=== PATIENT | male | born 1940 | race Caucasian/White ===

== ENCOUNTER 2017-10-23 07:39 | Emergency (ER) | payer MEDICARE ==
[2017-10-23] MEDS ORDERED: IPRATROPIUM-ALBUTEROL 3 ML NEB INHALATION STA ×2 (08:19→09:31)
[2017-10-23] MEDS ORDERED: methylPREDNISolone SOD SUCCI 125 MG/2 ML VIAL IV STA (08:19)
[2017-10-23 08:29] LABS: Basophils % (A) 1 %; Eosinophils % (A) 0 %; HCT 35.1 % (39.0-53.0); HGB 11.6 gm/dL (13.0-17.5); Lymphocytes # (A) 0.7 k/uL (1.0-4.8); Lymphocytes % (A) 13 %; MCHC 32.9 g/dL (31.0-37.0); MCV 91.1 fL (80.0-100.0); Mean Platelet Volume 9.1; Monocytes # (A) 0.6 k/uL (0-1.0); Monocytes % (A) 12 %; Neutrophils # (A) 3.8 k/uL (1.3-7.7); Neutrophils % (A) 71 %; Platelet Count 126 k/uL (150-450); RBC 3.86 m/uL (4.30-5.90); RDW 13.2 % (11.5-15.5); WBC 5.4 k/uL (3.8-10.6)
[2017-10-23 08:41] LABS: INR 1.1 (<1.2); Partial Thromboplastin Time 27.3 sec (22.0-30.0); Prothrombin Time 10.7 sec (9.0-12.0)
--- NOTE | 2017-10-23 08:44 | XR ---
EXAMINATION TYPE: XR chest 2V DATE OF EXAM: 10/23/2017 COMPARISON: 12/01/2010 HISTORY: Congestion and dyspnea for 5 days TECHNIQUE: Frontal and lateral views of the chest are obtained. FINDINGS: There is mild interstitial prominence although this is less pronounced on the exam of 2010 and therefore likely chronic related rather than interstitial pulmonary edema. No pulmonary vascular congestion. Mild cardiomegaly and post CABG changes of the chest are seen. No sizable pleural effusi on, focal consolidation or pneumothorax. Mild multilevel degenerative changes of the thoracic spine a re noted. Pulmonary hyperinflation and flattening of the diaphragms is also seen. On the lateral imag e there is peribronchial cuffing appreciated. IMPRESSION: 1. No focal consolidation to suggest pneumonia. 2. Peribronchial cuffing in the lateral image which can be seen in reactive airway disease or bronchi tis. 3. Findings suggesting underlying COPD.
--- NOTE | 2017-10-23 08:48 | ED ---
General Adult HPI - General Chief complaint: Shortness of Breath Stated complaint: CHELE,COLD SYMPTOMS, NO SLEEPING Time Seen by Provider: 10/23/17 08:11 Source: patient, RN notes reviewed Mode of arrival: ambulatory Limitations: no limitations - History of Present Illness Initial comments: The patient's 76-year-old male who presents emergency room today with a chief complaint of shortness of breath over the last 5 days. Does admit that he's had decreased sleep over the last 5 days due to the shortness of breath. He does admit to increased cough congestion with positive sputum production it's been green in color. He does admit that he has a history of COPD. Distal 2 breathing treatments at home. Does not use oxygen at home. Patient states he does have some pain in his ribs when he coughs. He denies any other complaints or symptoms. Patient denies any recent fever, chills, chest pain, back pain, abdominal pain, nausea or vomiting, numbness or tingling, dysuria or hematuria, constipation or diarrhea, headaches or visual changes, or any other complaints. - Related Data Home Medications Medication Instructions Recorded Confirmed Aspirin 81 mg PO DAILY 10/23/17 10/23/17 Atenolol [Tenormin] 50 mg PO DAILY 10/23/17 10/23/17 Doxazosin [Cardura] 4 mg PO DAILY 10/23/17 10/23/17 Furosemide [Lasix] 40 mg PO DAILY PRN 10/23/17 10/23/17 Ibuprofen [Motrin] 800 mg PO Q8H PRN 10/23/17 10/23/17 Simvastatin [Zocor] 40 mg PO HS 10/23/17 10/23/17 Spironolactone 50 mg PO DAILY 10/23/17 10/23/17 Previous Rx's Medication Instructions Recorded Albuterol Inhaler [Ventolin Hfa 1 - 2 puff INHALATION Q4-6H PRN #1 10/23/17 Inhaler] inhaler Albuterol Nebulized [Ventolin 2.5 mg INHALATION Q4H PRN 10 Days 10/23/17 Nebulized] nebu Azithromycin [Zithromax Z-pack] 0 mg PO DIRECTED #6 tab 10/23/17 predniSONE 50 mg PO DAILY #5 tab 10/23/17 Allergies Allergy/AdvReac Type Severity Reaction Status Date / Time diphenhydramine Allergy Unknown Verified 10/23/17 08:36 [From Benadryl] Review of Systems ROS Statement: Those systems with pertinent positive or pertinent negative responses have been documented in the HPI. ROS Other: All systems not noted in ROS Statement are negative. Past Medical History Past Medical History: COPD, Rheumatoid Arthritis (RA) History of Any Multi-Drug Resistant Organisms: None Reported Past Surgical History: Coronary Bypass/CABG Past Psychological History: No Psychological Hx Reported Smoking Status: Current every day smoker Past Alcohol Use History: Occasional Past Drug Use History: None Reported General Exam - General Exam Comments Initial Comments: General: The patient is awake and alert, in no distress, and does not appear acutely ill. Eye: Pupils are equal, round and reactive to light, extra-ocular movements are intact. No nystagmus. There is normal conjunctiva bilaterally. No signs of icterus. Ears, nose, mouth and throat: There are moist mucous membranes and no oral lesions. Neck: The neck is supple, there is no tenderness or JVD. Cardiovascular: There is a regular rate and rhythm. No murmur, rub or gallop is appreciated. Respiratory: Increased expiratory wheeze bilaterally. respirations are non- labored, breath sounds are equal. No stridor, rales, or rhonchi. Musculoskeletal: Normal ROM, no tenderness. Strength 5/5. Sensation intact. Pulses equal bilaterally 2+. Neurological: A&O x 3. CN II-XII intact, There are no obvious motor or sensory deficits. Coordination appears grossly intact. Speech is normal. Skin: Skin is warm and dry and no rashes or lesions are noted. Psychiatric: Cooperative, appropriate mood & affect, normal judgment. Limitations: no limitations Course Vital Signs 10/23/17 10/23/17 10/23/17 07:44 08:11 08:23 Temperature 98.7 F 98.9 F Pulse Rate 73 65 68 Respiratory 24 22 Rate Blood Pressure 132/62 162/93 O2 Sat by Pulse 94 L 97 Oximetry 10/23/17 10/23/17 10/23/17 08:29 09:02 09:35 Temperature Pulse Rate 66 75 62 Respiratory 18 Rate Blood Pressure 167/76 O2 Sat by Pulse 95 Oximetry 10/23/17 10/23/17 09:45 09:55 Temperature Pulse Rate 66 Respiratory Rate Blood Pressure O2 Sat by Pulse 94 L Oximetry Medical Decision Making - Medical Decision Making Patient reexamined at this time shows no signs of distress. He's been ambulated and a pulse ox stays at 95%. He feels much better after breathing treatments here in the emergency room. His lung sounds have improved are clear at this time. Options were discussed with patient about admission. He states he would like to go home. He states he has special needs child only helps take care of. Patient chest x-ray showed no evidence of pneumonia. No CHF. His BNP is greater than 2400 he is on Lasix. There is no increased swelling to his legs. At this time patient will be treated with azithromycin and steroids go home with along with breathing treatments. Patient is advised to return if symptoms increase or worsen. He states understanding and is agreeable. - Lab Data Result diagrams: 10/23/17 08:01 10/23/17 08:01 Lab Results 10/23/17 10/23/17 10/23/17 Range/Units 08:01 08:01 08:01 WBC 5.4 (3.8-10.6) k/uL RBC 3.86 L (4.30-5.90) m/uL Hgb 11.6 L (13.0-17.5) gm/dL Hct 35.1 L (39.0-53.0) % MCV 91.1 (80.0-100.0) fL MCH 30.0 (25.0-35.0) pg MCHC 32.9 (31.0-37.0) g/dL RDW 13.2 (11.5-15.5) % Plt Count 126 L (150-450) k/uL Neutrophils % 71 % Lymphocytes % 13 % Monocytes % 12 % Eosinophils % 0 % Basophils % 1 % Neutrophils # 3.8 (1.3-7.7) k/uL Lymphocytes # 0.7 L (1.0-4.8) k/uL Monocytes # 0.6 (0-1.0) k/uL Eosinophils # 0.0 (0-0.7) k/uL Basophils # 0.0 (0-0.2) k/uL PT (9.0-12.0) sec INR (<1.2) APTT (22.0-30.0) sec Sodium 141 (137-145) mmol/L Potassium 4.4 (3.5-5.1) mmol/L Chloride 102 (98-107) mmol/L Carbon Dioxide 27 (22-30) mmol/L Anion Gap 12 mmol/L BUN 23 H (9-20) mg/dL Creatinine 1.07 (0.66-1.25) mg/dL Est GFR (MDRD) Af Amer >60 (>60 ml/min/1.73 sqM) Est GFR (MDRD) Non-Af >60 (>60 ml/min/1.73 sqM) Glucose 110 H (74-99) mg/dL Calcium 9.1 (8.4-10.2) mg/dL Total Bilirubin 1.0 (0.2-1.3) mg/dL AST 30 (17-59) U/L ALT 34 (21-72) U/L Alkaline Phosphatase 79 (38-126) U/L Total Creatine Kinase 289 H (55-170) U/L CK-MB (CK-2) 1.2 (0.0-2.4) ng/mL CK-MB (CK-2) Rel Index 0.4 Troponin I 0.014 (0.000-0.034) ng/mL NT-Pro-B Natriuret Pep pg/mL Total Protein 7.0 (6.3-8.2) g/dL Albumin 4.0 (3.5-5.0) g/dL 10/23/17 10/23/17 Range/Units 08:01 08:01 WBC (3.8-10.6) k/uL RBC (4.30-5.90) m/uL Hgb (13.0-17.5) gm/dL Hct (39.0-53.0) % MCV (80.0-100.0) fL MCH (25.0-35.0) pg MCHC (31.0-37.0) g/dL RDW (11.5-15.5) % Plt Count (150-450) k/uL Neutrophils % % Lymphocytes % % Monocytes % % Eosinophils % % Basophils % % Neutrophils # (1.3-7.7) k/uL Lymphocytes # (1.0-4.8) k/uL Monocytes # (0-1.0) k/uL Eosinophils # (0-0.7) k/uL Basophils # (0-0.2) k/uL PT 10.7 (9.0-12.0) sec INR 1.1 (<1.2) APTT 27.3 (22.0-30.0) sec Sodium (137-145) mmol/L Potassium (3.5-5.1) mmol/L Chloride (98-107) mmol/L Carbon Dioxide (22-30) mmol/L Anion Gap mmol/L BUN (9-20) mg/dL Creatinine (0.66-1.25) mg/dL Est GFR (MDRD) Af Amer (>60 ml/min/1.73 sqM) Est GFR (MDRD) Non-Af (>60 ml/min/1.73 sqM) Glucose (74-99) mg/dL Calcium (8.4-10.2) mg/dL Total Bilirubin (0.2-1.3) mg/dL AST (17-59) U/L ALT (21-72) U/L Alkaline Phosphatase (38-126) U/L Total Creatine Kinase (55-170) U/L CK-MB (CK-2) (0.0-2.4) ng/mL CK-MB (CK-2) Rel Index Troponin I (0.000-0.034) ng/mL NT-Pro-B Natriuret Pep 2490 pg/mL Total Protein (6.3-8.2) g/dL Albumin (3.5-5.0) g/dL Disposition Clinical Impression: COPD exacerbation Disposition: HOME SELF-CARE Condition: Good Instructions: COPD (Chronic Obstructive Pulmonary Disease) (ED) Additional Instructions: Please use medication as discussed. Please follow-up with family doctor in the next 2 days of symptoms have not improved. Please return to emergency room if the symptoms increase or worsen or for any other concerns. Prescriptions: Albuterol Inhaler [Ventolin Hfa Inhaler] 1 - 2 puff INHALATION Q4-6H PRN #1 inhaler PRN Reason: Cough Albuterol Nebulized [Ventolin Nebulized] 2.5 mg INHALATION Q4H PRN 10 Days nebu PRN Reason: Cough Azithromycin [Zithromax Z-pack] 0 mg PO DIRECTED #6 tab predniSONE 50 mg PO DAILY #5 tab Referrals: Kvng Adrian DO [Primary Care Provider] - 1-2 days Time of Disposition: 10:16
[2017-10-23 08:50] LABS: ALT 34 U/L (21-72); AST 30 U/L (17-59); Alkaline Phosphatase 79 U/L (38-126); Anion Gap 12 mmol/L; Blood Urea Nitrogen 23 mg/dL (9-20); Calcium 9.1 mg/dL (8.4-10.2); Carbon Dioxide 27 mmol/L (22-30); Chloride 102 mmol/L (98-107); Glucose 110 mg/dL (74-99); Potassium 4.4 mmol/L (3.5-5.1); Sodium 141 mmol/L (137-145)
[2017-10-23 09:03] LABS: Creatine Kinase MB 1.2 ng/mL (0.0-2.4); Troponin I 0.014 ng/mL (0.000-0.034)
[2017-10-23] MEDS ORDERED: cefTRIAXone IN SWFI 1,000 MG/10 ML SYRINGE IVP STA (09:48)
[2017-10-23 10:36] VITALS: BP 171/69; PULSE 67; RESP 20; TEMP 97.9
== END 2017-10-23 10:36 | disposition home or self-care (01) ==
LOC: EC 07:39
DX: J44.1 Chronic obstructive pulmonary disease with (acute) exacerbation (principal); M06.9 Rheumatoid arthritis, unspecified; F17.200 Nicotine dependence, unspecified, uncomplicated; Z79.82 Long term (current) use of aspirin; Z79.899 Other long term (current) drug therapy; Z88.8 Allergy status to other drugs, medicaments and biological substances
CPT/HCPCS: 36415; 94640 ×2; 93005; 83880; 80053; 82550; 82553; 84484; 85025; 85610; 85730; 71046; 99285; 96374; 96375; J2930; J0696

== ENCOUNTER → 2017-11-05 | Outpatient (CLI) | payer MEDICARE ==
--- NOTE | 2017-11-05 17:17 | XR ---
EXAMINATION TYPE: XR abdomen 2V DATE OF EXAM: 11/05/2017 COMPARISON: NONE HISTORY: Right lower quadrant pain TECHNIQUE: 3 views FINDINGS: I see no sign of intestinal obstruction or pneumoperitoneum. Fecal pattern is normal. There is no evidence of a mass. There are no pathologic calcifications over the kidneys. IMPRESSION: Nonacute abdomen.
== END | disposition home or self-care (01) ==
LOC: RADXRYALE 16:49
PROVIDERS: ATTEND Physician Assistant Medical
DX: K59.00 Constipation, unspecified (principal); R10.813 Right lower quadrant abdominal tenderness
CPT/HCPCS: 74019

== ENCOUNTER → 2017-11-10 | Outpatient (CLI) | payer MEDICARE ==
[2017-11-10 19:30] LABS: Blood Urea Nitrogen 22 mg/dL (9-20)
--- NOTE | 2017-11-10 21:59 | CT ---
EXAMINATION TYPE: CT abdomen pelvis w con DATE OF EXAM: 11/10/2017 COMPARISON: Prior CT abdomen 03/26/2012 HISTORY: Right lower quadrant pain x [address] DLP: 782.3 mGycm Automated exposure control for dose reduction was used. TECHNIQUE: Helical acquisition of images from the lung bases through the pelvis have been completed. CONTRAST: Performed with Oral Contrast and with IV Contrast, patient injected with 100 mL of Omnipaque 300. FINDINGS: The heart is enlarged. There are coronary artery calcifications present. LUNG BASES: No significant abnormality is appreciated. AORTA: No significant abnormality is appreciated. LIVER/GB: Liver shows a somewhat nodular contour. Dependent high density within the gallbladder fransisco tible with stones. PANCREAS: No significant abnormality is seen. SPLEEN: No significant abnormality is seen. ADRENALS: No significant abnormality is seen. KIDNEYS: Cortical cyst present at the upper pole the right kidney similar to prior exam. Cannot exclu de a distal right ureteral calculus, 5 mm distal right ureteral calculus is suspected. REPRODUCTIVE ORGANS: Prostate is enlarged. BOWEL: Colonic wall thickening is present especially in the rectosigmoid colon, difficult to exclude mucosal or annular lesion. There is extensive diverticular change in the descending sigmoid colon, n o evident bowel obstruction. The appendix is normal. FREE AIR: No Free Air visible. ASCITES: None visible. PELVIC ADENOPATHY: None visualized. RETROPERITONEAL ADENOPATHY: No Retroperitoneal Adenopathy visible. URINARY BLADDER: There is some thickening of the urinary bladder wall likely due to chronic outlet o bstruction, focal deformity of the anterior aspect on the left may be related to patient's hernia.. OSSEOUS STRUCTURES: No significant abnormality is seen. There is a left inguinal hernia present which contains fat. IMPRESSION: FINDINGS LIKELY REPRESENT DISTAL RIGHT URETERAL CALCULUS. DIVERTICULOSIS. CONSIDER BOWEL SURVEILLANCE IF THIS HAS NOT BEEN PERFORMED DESCRIBED. LEFT INGUINAL HERNIA. Cholelithiasis.
== END | disposition home or self-care (01) ==
LOC: RADCTMAIN 18:33
PROVIDERS: ATTEND Physician Assistant Medical
DX: K80.20 Calculus of gallbladder without cholecystitis without obstruction (principal); K40.90 Unilateral inguinal hernia, without obstruction or gangrene, not specified as recurrent; K57.30 Diverticulosis of large intestine without perforation or abscess without bleeding
CPT/HCPCS: 82565; 84520; 74177; 36415; Q9967

== ENCOUNTER → 2018-01-25 | Outpatient (CLI) | payer MEDICARE ==
--- NOTE | 2018-01-25 15:17 | XR ---
EXAMINATION TYPE: XR cervical spine limited DATE OF EXAM: 01/25/2018 TECHNIQUE: Frontal and lateral view of the cervical spine are obtained. HISTORY: M542 cervicalgia right neck pain for 3 weeks. COMPARISON: None FINDINGS: The cervical spine is visualized in its entirety from C1 thru the top of T1 level, it is s traightened in alignment without evidence of acute fracture or dislocation. The pre-vertebral soft t issue appears within normal limits. The C1-C2 articulation is within normal limits on the frontal vi ew. Vertebral body heights are maintained. There is mild to moderate multilevel disc space narrowing and spurring most prominent at C5-C6 level. There is partial visualization of sternal wires and media stinal clips. There is mild to moderate calcified plaque bilateral carotid bulbs, left greater than r ight. Consider carotid ultrasound evaluation to further assess. IMPRESSION: As above.
== END | disposition home or self-care (01) ==
LOC: RADXRYALE 14:44
PROVIDERS: ATTEND Family Medicine
DX: M48.02 Spinal stenosis, cervical region (principal); Z98.890 Other specified postprocedural states
CPT/HCPCS: 72040

== ENCOUNTER → 2018-04-02 | Outpatient (CLI) | payer MEDICARE ==
[2018-04-02 08:44] LABS: Calcium 9.6 mg/dL (8.4-10.2); Potassium 5.4 mmol/L (3.5-5.1)
== END | disposition home or self-care (01) ==
LOC: LABWHC1 08:05
PROVIDERS: ATTEND Internal Medicine Cardiovascular Disease
DX: E78.5 Hyperlipidemia, unspecified (principal); I25.10 Atherosclerotic heart disease of native coronary artery without angina pectoris; R60.9 Edema, unspecified
CPT/HCPCS: 36415; 80048; 80061; 83880; 84450; 84460

== ENCOUNTER → 2018-06-18 | Outpatient (CLI) | payer MEDICARE ==
[2018-06-18 09:02] LABS: Basophils # (A) 0.1 k/uL (0-0.2); Basophils % (A) 1 %; Eosinophils # (A) 0.8 k/uL (0-0.7); Eosinophils % (A) 11 %; HCT 45.7 % (39.0-53.0); Lymphocytes # (A) 1.5 k/uL (1.0-4.8); Lymphocytes % (A) 20 %; MCH 30.2 pg (25.0-35.0); MCHC 32.7 g/dL (31.0-37.0); MCV 92.1 fL (80.0-100.0); Mean Platelet Volume 8.3; Monocytes # (A) 0.5 k/uL (0-1.0); Monocytes % (A) 7 %; Neutrophils # (A) 4.4 k/uL (1.3-7.7); Neutrophils % (A) 59 %; Platelet Count 171 k/uL (150-450); RBC 4.96 m/uL (4.30-5.90); RDW 14.4 % (11.5-15.5); WBC 7.4 k/uL (3.8-10.6)
[2018-06-18 09:21] LABS: Calcium 9.6 mg/dL (8.4-10.2); Potassium 4.8 mmol/L (3.5-5.1); Total Bilirubin 1.3 mg/dL (0.2-1.3); Total Protein 7.1 g/dL (6.3-8.2)
== END | disposition home or self-care (01) ==
LOC: LABWHC1 08:25
PROVIDERS: ATTEND Internal Medicine Cardiovascular Disease
DX: I25.10 Atherosclerotic heart disease of native coronary artery without angina pectoris (principal); E78.5 Hyperlipidemia, unspecified; M19.90 Unspecified osteoarthritis, unspecified site
CPT/HCPCS: 36415; 80053; 85025

== ENCOUNTER 2018-07-05 22:06 | Emergency (ER) | payer MEDICARE ==
[2018-07-05 22:16] VITALS: RESP 16
--- NOTE | 2018-07-05 22:44 | ED ---
Psych HPI - General Chief Complaint: Psychiatric Symptoms Stated Complaint: Suicidal Time Seen by Provider: 07/05/18 22:14 Source: patient, family, EMS Mode of arrival: EMS - History of Present Illness Initial Comments: Patient is 77-year-old man brought by EMS to have psychiatric evaluation. The patient does not give any useful history, stating that he is not know why he is in the emergency department. The patient states that he hasn't really been texting his daughter that he was tired of it all, and then he states that the next thing he knew an ambulance had arrived at his house for him. The patient is not more forthcoming about the situation. Does state that he was drinking "too many shots"tonight. Complaint: other -: unknown - Related Data Home Medications Medication Instructions Recorded Confirmed Aspirin 81 mg PO DAILY 10/23/17 07/05/18 Atenolol [Tenormin] 50 mg PO DAILY 10/23/17 07/05/18 Furosemide [Lasix] 40 mg PO DAILY PRN 10/23/17 07/05/18 Simvastatin [Zocor] 40 mg PO HS 10/23/17 07/05/18 Spironolactone 50 mg PO DAILY 10/23/17 07/05/18 Allergies Allergy/AdvReac Type Severity Reaction Status Date / Time diphenhydramine Allergy Unknown Verified 07/05/18 22:54 [From Benadryl] Review of Systems ROS Statement: Those systems with pertinent positive or pertinent negative responses have been documented in the HPI. ROS Other: All systems not noted in ROS Statement are negative. Constitutional: Denies: fever, chills, weakness Respiratory: Denies: cough, dyspnea Cardiovascular: Denies: chest pain, palpitations Gastrointestinal: Denies: abdominal pain, vomiting, diarrhea Musculoskeletal: Denies: back pain Neurological: Denies: headache Psychiatric: Reports: as per HPI Past Medical History Past Medical History: COPD, Rheumatoid Arthritis (RA) History of Any Multi-Drug Resistant Organisms: None Reported Past Surgical History: Coronary Bypass/CABG Past Psychological History: No Psychological Hx Reported Smoking Status: Current every day smoker Past Alcohol Use History: Daily Past Drug Use History: None Reported General Exam General appearance: alert, in no apparent distress, appears intoxicated Head exam: Present: atraumatic, normocephalic Eye exam: Present: normal appearance, EOMI, nystagmus. Absent: scleral icterus , conjunctival injection Respiratory exam: Present: normal lung sounds bilaterally. Absent: respiratory distress, wheezes, rales, rhonchi, stridor Cardiovascular Exam: Present: regular rate, normal rhythm, normal heart sounds. Absent: systolic murmur, diastolic murmur, rubs, gallop GI/Abdominal exam: Present: soft. Absent: distended, tenderness, guarding, rebound Extremities exam: Present: normal inspection, normal capillary refill. Absent: pedal edema, calf tenderness Back exam: Present: normal inspection. Absent: CVA tenderness (R), CVA tenderness (L) Skin exam: Present: warm, dry, intact, normal color. Absent: rash Course Vital Signs 07/05/18 22:12 Temperature 97.0 F L Pulse Rate 71 Respiratory 16 Rate Blood Pressure 139/72 O2 Sat by Pulse 98 Oximetry Medical Decision Making - Lab Data Lab Results 07/05/18 07/06/18 Range/Units 22:30 00:24 Urine Opiates Screen Not Detected (NotDetected) Ur Oxycodone Screen Not Detected (NotDetected) Urine Methadone Screen Not Detected (NotDetected) Ur Propoxyphene Screen Not Detected (NotDetected) Ur Barbiturates Screen Not Detected (NotDetected) U Tricyclic Antidepress Not Detected (NotDetected) Ur Phencyclidine Scrn Not Detected (NotDetected) Ur Amphetamines Screen Not Detected (NotDetected) U Methamphetamines Scrn Not Detected (NotDetected) U Benzodiazepines Scrn Not Detected (NotDetected) Urine Cocaine Screen Not Detected (NotDetected) U Marijuana (THC) Screen Detected H (NotDetected) Serum Alcohol 82 mg/dL Disposition Clinical Impression: Alcohol intoxication Disposition: HOME SELF-CARE Condition: Good Instructions: Alcohol Intoxication (ED) Is patient prescribed a controlled substance at d/c from ED?: No Referrals: Kvng Adrian DO [Primary Care Provider] - 1-2 days
[2018-07-05 23:13] LABS: Amphetamine Screen,Urine Not Detected (NotDetected); Barbiturate Screen,Urine Not Detected (NotDetected); Benzodiazepines Screen,Urine Not Detected (NotDetected); Cocaine Screen,Urine Not Detected (NotDetected); Methadone Screen, Urine Not Detected (NotDetected); Opiate Screen,Urine Not Detected (NotDetected); Oxycodone Screen, Urine Not Detected (NotDetected); Phencyclidine Screen,Urine Not Detected (NotDetected); Tricyclic Antidepressant,Urine Not Detected (NotDetected); Urn Cannabinoid Scrn Detected (NotDetected)
[2018-07-06 03:08] VITALS: BP 130/74; PULSE 68; TEMP 97.7
== END 2018-07-06 03:08 | disposition home or self-care (01) ==
LOC: EC 22:06
DX: F10.120 Alcohol abuse with intoxication, uncomplicated (principal); F17.200 Nicotine dependence, unspecified, uncomplicated; Z95.1 Presence of aortocoronary bypass graft; Z79.82 Long term (current) use of aspirin; Z79.899 Other long term (current) drug therapy; Z88.8 Allergy status to other drugs, medicaments and biological substances; Y90.4 Blood alcohol level of 80-99 mg/100 ml
CPT/HCPCS: 36415; 80306; 99285; G0480; 80320

== ENCOUNTER 2018-11-19 17:28 | Emergency (ER) | payer MEDICARE ==
[2018-11-19] MEDS ORDERED: SODIUM CHLORIDE 0.9% 1,000 ML IV STA (17:36)
[2018-11-19] MEDS ORDERED: SODIUM CHLORIDE 0.9% 500 ML 500 ML IV STA (17:36)
--- NOTE | 2018-11-19 17:43 | ED ---
General Adult HPI - General Chief complaint: Chest Pain Stated complaint: Syncope Time Seen by Provider: 11/19/18 17:30 Source: patient, EMS, RN notes reviewed Mode of arrival: EMS - History of Present Illness Initial comments: Is a 77-year-old male who was just recently put on Eliquis who states he was sitting at a computer daily became very lightheaded and dizzy no palpitations he denies any chest pain [place] questioning any almost passed out he did apparently fall but was caught by family members. Right now he feels normal he denies any fevers chills nausea vomiting sweats palpitations patient is noted have atrial fibrillation. He does admit to drinking a glass of wine today and 3 glasses last night. He has been eating and drinking okay however. Denies any headache loss of function to his upper or lower extremities or any other complaints - Related Data Home Medications Medication Instructions Recorded Confirmed Aspirin 81 mg PO DAILY 10/23/17 11/19/18 Atenolol [Tenormin] 50 mg PO DAILY 10/23/17 11/19/18 Simvastatin [Zocor] 40 mg PO HS 10/23/17 11/19/18 Spironolactone 50 mg PO DAILY 10/23/17 11/19/18 Doxazosin [Cardura] 4 mg PO DAILY 11/19/18 11/19/18 Eliquis (Mg Unknown) 1 tab PO DAILY 11/19/18 11/19/18 Turmeric Root Extract [Turmeric] 500 mg PO DAILY 11/19/18 11/19/18 Allergies Allergy/AdvReac Type Severity Reaction Status Date / Time diphenhydramine Allergy Unknown Verified 11/19/18 18:03 [From Benadryl] Review of Systems ROS Statement: Those systems with pertinent positive or pertinent negative responses have been documented in the HPI. ROS Other: All systems not noted in ROS Statement are negative. Past Medical History Past Medical History: COPD, Rheumatoid Arthritis (RA) History of Any Multi-Drug Resistant Organisms: None Reported Past Surgical History: Coronary Bypass/CABG Past Psychological History: No Psychological Hx Reported Smoking Status: Current every day smoker Past Alcohol Use History: Daily Past Drug Use History: None Reported General Exam - General Exam Comments Initial Comments: This is a well-developed well-nourished awake alert oriented times 3 male General appearance: alert, in no apparent distress Head exam: Present: atraumatic, normocephalic, normal inspection Eye exam: Present: normal appearance, PERRL, EOMI. Absent: scleral icterus, conjunctival injection, periorbital swelling ENT exam: Present: mucous membranes dry Neck exam: Present: normal inspection. Absent: tenderness, meningismus, lymphadenopathy Respiratory exam: Present: normal lung sounds bilaterally. Absent: respiratory distress, wheezes, rales, rhonchi, stridor Cardiovascular Exam: Present: irregular rhythm. Absent: systolic murmur, diastolic murmur, rubs, gallop, clicks GI/Abdominal exam: Present: soft, normal bowel sounds. Absent: distended, tenderness, guarding, rebound, rigid Extremities exam: Present: normal inspection, full ROM, normal capillary refill. Absent: tenderness, pedal edema, joint swelling, calf tenderness Back exam: Present: normal inspection Neurological exam: Present: alert, oriented X3, CN II-XII intact Psychiatric exam: Present: normal affect, normal mood Skin exam: Present: warm, dry, intact, normal color. Absent: rash Course Vital Signs 11/19/18 11/19/18 11/19/18 17:39 19:07 20:23 Temperature 98 F Pulse Rate 68 66 69 Respiratory 14 16 16 Rate Blood Pressure 137/68 129/71 128/70 O2 Sat by Pulse 98 97 99 Oximetry - Reevaluation(s) Reevaluation #1: 11/19/18 17:43 Rhythm strip review atrial fibrillation rate of 62 indication was near syncopal episode and history of A. fib. EKG Findings - EKG Results: EKG: interpreted by PATRICK (Atrial fibrillation with a rate of 62 QRS 80 QT since QTC 436/442 some artifact is present no acute ST-T wave acute changes seen) Medical Decision Making - Medical Decision Making I did have one discussed with patient family member the patient feels much improved at this time he does describe almost passed out when bending over while working at his computer. The workup is consistent with a vasovagal episode likely secondary to dehydration. He also did demonstrate hypomagnesemia. He was given IV supplements in the emergency department and discharged. He will be instructed to take [id number] magnesium follow-up with his doctor also increase his oral fluids. - Lab Data Result diagrams: 11/19/18 17:48 03/01/19 17:48 Lab Results 11/19/18 11/19/18 11/19/18 Range/Units 17:48 17:48 17:48 WBC 8.7 (3.8-10.6) k/uL RBC 4.45 (4.30-5.90) m/uL Hgb 13.9 (13.0-17.5) gm/dL Hct 41.4 (39.0-53.0) % MCV 93.1 (80.0-100.0) fL MCH 31.1 (25.0-35.0) pg MCHC 33.5 (31.0-37.0) g/dL RDW 13.7 (11.5-15.5) % Plt Count 162 (150-450) k/uL Neutrophils % 74 % Lymphocytes % 12 % Monocytes % 6 % Eosinophils % 7 % Basophils % 1 % Neutrophils # 6.4 (1.3-7.7) k/uL Lymphocytes # 1.0 (1.0-4.8) k/uL Monocytes # 0.5 (0-1.0) k/uL Eosinophils # 0.6 (0-0.7) k/uL Basophils # 0.1 (0-0.2) k/uL PT 10.6 (9.0-12.0) sec INR 1.0 (<1.2) APTT 24.0 (22.0-30.0) sec Sodium 137 (137-145) mmol/L Potassium 4.7 (3.5-5.1) mmol/L Chloride 104 (98-107) mmol/L Carbon Dioxide 26 (22-30) mmol/L Anion Gap 7 mmol/L BUN 21 H (9-20) mg/dL Creatinine 1.09 (0.66-1.25) mg/dL Est GFR (CKD-EPI)AfAm 75 (>60 ml/min/1.73 sqM) Est GFR (CKD-EPI)NonAf 65 (>60 ml/min/1.73 sqM) Glucose 125 H (74-99) mg/dL Calcium 9.6 (8.4-10.2) mg/dL Magnesium 1.7 (1.6-2.3) mg/dL Total Bilirubin 1.0 (0.2-1.3) mg/dL AST 18 (17-59) U/L ALT 28 (21-72) U/L Alkaline Phosphatase 75 (38-126) U/L Troponin I (0.000-0.034) ng/mL Total Protein 6.9 (6.3-8.2) g/dL Albumin 4.0 (3.5-5.0) g/dL Urine Color Urine Appearance (Clear) Urine pH (5.0-8.0) Ur Specific [place] (1.001-1.035) Urine Protein (Negative) Urine Glucose (UA) (Negative) Urine Ketones (Negative) Urine Blood (Negative) Urine Nitrite (Negative) Urine Bilirubin (Negative) Urine Urobilinogen (<2.0) mg/dL Ur Leukocyte Esterase (Negative) 11/19/18 11/19/18 Range/Units 17:48 17:48 WBC (3.8-10.6) k/uL RBC (4.30-5.90) m/uL Hgb (13.0-17.5) gm/dL Hct (39.0-53.0) % MCV (80.0-100.0) fL MCH (25.0-35.0) pg MCHC (31.0-37.0) g/dL RDW (11.5-15.5) % Plt Count (150-450) k/uL Neutrophils % % Lymphocytes % % Monocytes % % Eosinophils % % Basophils % % Neutrophils # (1.3-7.7) k/uL Lymphocytes # (1.0-4.8) k/uL Monocytes # (0-1.0) k/uL Eosinophils # (0-0.7) k/uL Basophils # (0-0.2) k/uL PT (9.0-12.0) sec INR (<1.2) APTT (22.0-30.0) sec Sodium (137-145) mmol/L Potassium (3.5-5.1) mmol/L Chloride (98-107) mmol/L Carbon Dioxide (22-30) mmol/L Anion Gap mmol/L BUN (9-20) mg/dL Creatinine (0.66-1.25) mg/dL Est GFR (CKD-EPI)AfAm (>60 ml/min/1.73 sqM) Est GFR (CKD-EPI)NonAf (>60 ml/min/1.73 sqM) Glucose (74-99) mg/dL Calcium (8.4-10.2) mg/dL Magnesium (1.6-2.3) mg/dL Total Bilirubin (0.2-1.3) mg/dL AST (17-59) U/L ALT (21-72) U/L Alkaline Phosphatase (38-126) U/L Troponin I <0.012 (0.000-0.034) ng/mL Total Protein (6.3-8.2) g/dL Albumin (3.5-5.0) g/dL Urine Color Yellow Urine Appearance Clear (Clear) Urine pH 5.5 (5.0-8.0) Ur Specific [place] 1.016 (1.001-1.035) Urine Protein Negative (Negative) Urine Glucose (UA) Negative (Negative) Urine Ketones Negative (Negative) Urine Blood Negative (Negative) Urine Nitrite Negative (Negative) Urine Bilirubin Negative (Negative) Urine Urobilinogen <2.0 (<2.0) mg/dL Ur Leukocyte Esterase Negative (Negative) - Radiology Data Radiology results: report reviewed, image reviewed Disposition Clinical Impression: Vasovagal episode, Hypomagnesemia, Dehydration Disposition: HOME SELF-CARE Condition: Good Instructions (If sedation given, give patient instructions): Hypomagnesemia (ED ), Dehydration (ED), Near Syncope (ED) Is patient prescribed a controlled substance at d/c from ED?: No Referrals: Kvng Adrian DO [Primary Care Provider] - 1-2 days
[2018-11-19 17:45] VITALS: TEMP 98
[2018-11-19 18:17] LABS: Appearance,Urine Clear (Clear); Basophils # (A) 0.1 k/uL (0-0.2); Basophils % (A) 1 %; Bilirubin,Urine Negative (Negative); Blood,Urine Negative (Negative); Color,Urine Yellow; Eosinophils # (A) 0.6 k/uL (0-0.7); Eosinophils % (A) 7 %; Glucose,Urine (UA) Negative (Negative); HCT 41.4 % (39.0-53.0); HGB 13.9 gm/dL (13.0-17.5); Ketones,Urine Negative (Negative); Leukocyte Esterase,Urine Negative (Negative); Lymphocytes % (A) 12 %; MCH 31.1 pg (25.0-35.0); MCHC 33.5 g/dL (31.0-37.0); MCV 93.1 fL (80.0-100.0); Mean Platelet Volume 8.8; Monocytes # (A) 0.5 k/uL (0-1.0); Monocytes % (A) 6 %; Neutrophils # (A) 6.4 k/uL (1.3-7.7); Neutrophils % (A) 74 %; Nitrite,Urine Negative (Negative); PH, Urine 5.5 (5.0-8.0); Platelet Count 162 k/uL (150-450); Protein,Urine Negative (Negative); RBC 4.45 m/uL (4.30-5.90); RDW 13.7 % (11.5-15.5); Specific Gravity,Urine 1.016 (1.001-1.035); Urobilinogen,Urine <2.0 mg/dL (<2.0); WBC 8.7 k/uL (3.8-10.6)
[2018-11-19 18:28] LABS: Prothrombin Time 10.6 sec (9.0-12.0)
[2018-11-19 18:29] LABS: Calcium 9.6 mg/dL (8.4-10.2); Magnesium 1.7 mg/dL (1.6-2.3); Potassium 4.7 mmol/L (3.5-5.1); Total Protein 6.9 g/dL (6.3-8.2)
--- NOTE | 2018-11-19 18:44 | CT ---
EXAMINATION TYPE: CT brain wo con DATE OF EXAM: 11/19/2018 COMPARISON: 02/26/2013 HISTORY: Syncopal episode today. CT DLP: 1046.4 mGycm Automated exposure control for dose reduction was used. FINDINGS: There is cerebral cortical atrophy. There is no mass effect nor midline shift. There is no sign of in tracranial hemorrhage. Calvarium is intact. IMPRESSION: MILD ATROPHY. NO ACUTE INTRACRANIAL ABNORMALITY. NO CHANGE COMPARED TO OLD EXAM.
--- NOTE | 2018-11-19 18:46 | XR ---
EXAMINATION TYPE: XR chest 2V DATE OF EXAM: 11/19/2018 COMPARISON: October 23, 2017 HISTORY: Syncope TECHNIQUE: Frontal and lateral views of the chest are obtained. FINDINGS: There is no heart failure nor confluent pneumonic infiltrate. There are sternal wires. Tho racic aorta is atheromatous. There is no pleural effusion. There are chest leads. There is minor spur ring in the thoracic spine. IMPRESSION: No active cardiopulmonary disease. There is clearing of minimal pulmonary interstitial e adelso compared to old exam.
[2018-11-19 19:08] VITALS: RESP 16
[2018-11-19] MEDS ORDERED: MAGNESIUM SULFATE-D5W PMX 1 GM in DEXTROSE/WATER 1 100ML.BAG IVPB ONE (19:11)
[2018-11-19 20:25] VITALS: BP 128/70; PULSE 69
== END 2018-11-19 20:23 | disposition home or self-care (01) ==
LOC: EC 17:28
DX: R55 Syncope and collapse (principal); E83.42 Hypomagnesemia; E86.0 Dehydration; R07.9 Chest pain, unspecified; I48.91 Unspecified atrial fibrillation; F17.200 Nicotine dependence, unspecified, uncomplicated; Z95.1 Presence of aortocoronary bypass graft; Z79.82 Long term (current) use of aspirin; Z79.01 Long term (current) use of anticoagulants; Z79.899 Other long term (current) drug therapy; Z88.8 Allergy status to other drugs, medicaments and biological substances
CPT/HCPCS: 36415; 93005; 80053; 83735; 84484; 85025; 85610; 85730; 81003; 71046; 70450; 99285; 96365; 96361; J3475

== ENCOUNTER 2019-02-04 15:01 | Emergency (ER) | payer MEDICARE ==
[2019-02-04 15:05] VITALS: BP 142/65; PULSE 68; RESP 16; TEMP 98.2
--- NOTE | 2019-02-04 15:19 | ED ---
General Adult HPI - General Chief complaint: Recheck/Abnormal Lab/Rx Stated complaint: sent by money counter Time Seen by Provider: 02/04/19 15:07 Source: patient Mode of arrival: ambulatory Limitations: no limitations - History of Present Illness Initial comments: Patient is a 78-year-old male with a history of a triple bypass presents with a chief complaint of an elevated INR. He was seen by his money counter today, sent for labs, and got a phone call about 45 minutes ago stating that his PT was extremely elevated. Review of the labs show the patient INR over 10. Up until about a month ago, the patient was taking liquids but was recently switched to Coumadin. He states that he started a dose of 0.5 but then was instructed to take 2.5 mg daily. Patient does not have any other complaints today. He denies any easy bleeding or bruising. - Related Data Home Medications Medication Instructions Recorded Confirmed Aspirin 81 mg PO DAILY 10/23/17 02/04/19 Atenolol [Tenormin] 50 mg PO DAILY 10/23/17 02/04/19 Simvastatin [Zocor] 40 mg PO HS 10/23/17 02/04/19 Spironolactone 50 mg PO DAILY 10/23/17 02/04/19 Doxazosin [Cardura] 4 mg PO DAILY 11/19/18 02/04/19 Warfarin [Coumadin] 2.5 mg PO HS 02/04/19 02/04/19 Allergies Allergy/AdvReac Type Severity Reaction Status Date / Time diphenhydramine Allergy Unknown Verified 02/04/19 15:16 [From Benadryl] Review of Systems ROS Statement: Those systems with pertinent positive or pertinent negative responses have been documented in the HPI. ROS Other: All systems not noted in ROS Statement are negative. Past Medical History Past Medical History: COPD, Rheumatoid Arthritis (RA) History of Any Multi-Drug Resistant Organisms: None Reported Past Surgical History: Coronary Bypass/CABG Past Psychological History: No Psychological Hx Reported Smoking Status: Current some day smoker Past Alcohol Use History: Daily Past Drug Use History: Marijuana General Exam Limitations: no limitations General appearance: alert, in no apparent distress Head exam: Present: atraumatic, normocephalic Eye exam: Present: normal appearance ENT exam: Present: normal exam Neck exam: Present: normal inspection Respiratory exam: Present: normal lung sounds bilaterally. Absent: respiratory distress, wheezes Cardiovascular Exam: Present: regular rate, normal rhythm GI/Abdominal exam: Present: soft. Absent: distended, tenderness Rectal exam: Present: deferred Extremities exam: Present: normal inspection Back exam: Present: normal inspection Neurological exam: Present: alert, oriented X3 Psychiatric exam: Present: normal affect, normal mood Skin exam: Present: warm, dry, intact Course Vital Signs 02/04/19 15:02 Temperature 98.2 F Pulse Rate 68 Respiratory 16 Rate Blood Pressure 142/65 O2 Sat by Pulse 97 Oximetry Medical Decision Making - Medical Decision Making Patient presents with a chief complaint of an elevated INR. On initial evaluation, vitals are stable, patient is no acute distress. He is alert and oriented. Review of labs from earlier today show an INR of over 10, and a PTT of 130. Patient will have repeat labs to verify. 5:18 PM Laboratory evaluation today shows consistently elevated INR and PTT. Labs are otherwise unremarkable. Patient given 5 mg IV vitamin K. He'll be instructed to not take any Coumadin over the weekend. He is discussed with Dr. Arauz who wants the patient to go to the office on Thursday for a stat INR, and states that he can be further directed from there. care plan reviewed with the patient, he verbalizes understanding of instructions by read back, he was instructed to return to the ED if any new or concerning symptoms arise, especially any injury or bleeding. Patient confirms by teach back. - Lab Data Result diagrams: 02/04/19 15:36 02/04/19 15:36 Lab Results 02/04/19 02/04/19 02/04/19 Range/Units 15:36 15:36 15:36 WBC 7.0 (3.8-10.6) k/uL RBC 4.25 L (4.30-5.90) m/uL Hgb 13.2 (13.0-17.5) gm/dL Hct 39.0 (39.0-53.0) % MCV 91.6 (80.0-100.0) fL MCH 31.1 (25.0-35.0) pg MCHC 33.9 (31.0-37.0) g/dL RDW 13.5 (11.5-15.5) % Plt Count 176 (150-450) k/uL Neutrophils % 54 % Lymphocytes % 20 % Monocytes % 9 % Eosinophils % 13 % Basophils % 1 % Neutrophils # 3.8 (1.3-7.7) k/uL Lymphocytes # 1.4 (1.0-4.8) k/uL Monocytes # 0.6 (0-1.0) k/uL Eosinophils # 0.9 H (0-0.7) k/uL Basophils # 0.1 (0-0.2) k/uL PT >130.0 H (9.0-12.0) sec INR >10.0 H* (<1.2) Sodium 140 (137-145) mmol/L Potassium 4.0 (3.5-5.1) mmol/L Chloride 107 (98-107) mmol/L Carbon Dioxide 25 (22-30) mmol/L Anion Gap 8 mmol/L BUN 21 H (9-20) mg/dL Creatinine 0.99 (0.66-1.25) mg/dL Est GFR (CKD-EPI)AfAm 84 (>60 ml/min/1.73 sqM) Est GFR (CKD-EPI)NonAf 73 (>60 ml/min/1.73 sqM) Glucose 103 H (74-99) mg/dL Calcium 9.2 (8.4-10.2) mg/dL Disposition Clinical Impression: Elevated INR, Coagulopathy Disposition: HOME SELF-CARE Condition: Good Is patient prescribed a controlled substance at d/c from ED?: No Referrals: Kvng Adrian DO [Primary Care Provider] - 1-2 days Anamika Arauz MD [STAFF PHYSICIAN] - 1-2 days
[2019-02-04 15:51] LABS: Basophils # (A) 0.1 k/uL (0-0.2); Basophils % (A) 1 %; Eosinophils # (A) 0.9 k/uL (0-0.7); Eosinophils % (A) 13 %; HGB 13.2 gm/dL (13.0-17.5); Lymphocytes # (A) 1.4 k/uL (1.0-4.8); Lymphocytes % (A) 20 %; MCH 31.1 pg (25.0-35.0); MCHC 33.9 g/dL (31.0-37.0); MCV 91.6 fL (80.0-100.0); Mean Platelet Volume 8.2; Monocytes # (A) 0.6 k/uL (0-1.0); Monocytes % (A) 9 %; Neutrophils # (A) 3.8 k/uL (1.3-7.7); Neutrophils % (A) 54 %; Platelet Count 176 k/uL (150-450); RBC 4.25 m/uL (4.30-5.90); RDW 13.5 % (11.5-15.5)
[2019-02-04 16:18] LABS: Calcium 9.2 mg/dL (8.4-10.2)
[2019-02-04 16:37] LABS: Prothrombin Time >130.0 sec (9.0-12.0)
[2019-02-04 16:39] LABS: INR >10.0 (<1.2)
[2019-02-04] MEDS ORDERED: PHYTONADIONE 5 MG in SODIUM CHLORIDE 0.9% 50 ML IVPB STA (16:45)
== END 2019-02-04 18:15 | disposition home or self-care (01) ==
LOC: EC 15:01
DX: D68.9 Coagulation defect, unspecified (principal); F17.200 Nicotine dependence, unspecified, uncomplicated; Z95.1 Presence of aortocoronary bypass graft; Z79.82 Long term (current) use of aspirin; Z79.01 Long term (current) use of anticoagulants; Z79.899 Other long term (current) drug therapy; Z88.8 Allergy status to other drugs, medicaments and biological substances
CPT/HCPCS: 36415; 80048; 85025; 85610; 99283; 96365; J3430

== ENCOUNTER → 2019-02-04 | Outpatient (CLI) | payer MEDICARE ==
[2019-02-04 10:33] LABS: Prothrombin Time >130.0 sec (9.0-12.0)
[2019-02-04 10:38] LABS: INR >10.0 (<1.2)
== END ==
LOC: LABWHC1 09:02
PROVIDERS: ATTEND Internal Medicine Cardiovascular Disease
DX: I48.91 Unspecified atrial fibrillation (principal)
CPT/HCPCS: 36415; 85610

== ENCOUNTER 2019-05-07 13:00 | Observation (INO) | payer MEDICARE ==
[2019-05-07] MEDS ORDERED: SODIUM CHLORIDE 0.9% 500 ML 500 ML IV STA (13:40)
[2019-05-07] MEDS ORDERED: ONDANSETRON 4 MG/2 ML VIAL IVP STA (13:40)
[2019-05-07] MEDS ORDERED: SODIUM CHLORIDE 0.9% 1,000 ML IV STA (13:40)
--- NOTE | 2019-05-07 13:44 | ED ---
GI Bleed HPI - General Chief complaint: GI Bleed Stated complaint: POSS INTERNAL BLEEDING Time Seen by Provider: 05/07/19 13:39 Source: patient, RN notes reviewed, old records reviewed Mode of arrival: ambulatory Limitations: no limitations - History of Present Illness Initial comments: This is a 70-year-old male the ER for evaluation presents today for evaluation regarding blood in the stool. Patient has been having loose to 4 days live in black. Patient has history of atrial fibrillation he is on Coumadin states his INR is been fine. He is not feeling lightheaded dizzy weak. Otherwise feels fine. No abdominal pain. No nausea or vomiting MD complaint: melena -: days(s) (4) Severity scale (1-10): 3 Quality: painless Consistency: constant Improves with: none Worsens with: none Context: blood thinners Associated Symptoms: denies other symptoms Treatments Prior to Arrival: none - Related Data Home Medications Medication Instructions Recorded Confirmed Aspirin 81 mg PO DAILY 10/23/17 05/07/19 Atenolol [Tenormin] 50 mg PO DAILY 10/23/17 05/07/19 Simvastatin [Zocor] 40 mg PO DAILY 10/23/17 05/07/19 Spironolactone 50 mg PO DAILY 10/23/17 05/07/19 Doxazosin [Cardura] 4 mg PO DAILY 11/19/18 05/07/19 Warfarin [Coumadin] 2.5 mg PO SUMOTUTHFRSA 02/04/19 05/07/19 Ibuprofen [Motrin] 800 mg PO Q6H PRN 05/07/19 05/07/19 Allergies Allergy/AdvReac Type Severity Reaction Status Date / Time diphenhydramine Allergy Unknown Verified 05/07/19 13:54 [From Benadryl] Review of Systems ROS Statement: Those systems with pertinent positive or pertinent negative responses have been documented in the HPI. ROS Other: All systems not noted in ROS Statement are negative. Past Medical History Past Medical History: Atrial Fibrillation, COPD, Rheumatoid Arthritis (RA) History of Any Multi-Drug Resistant Organisms: None Reported Past Surgical History: Coronary Bypass/CABG, Orthopedic Surgery Additional Past Surgical History / Comment(s): L shoulder Past Psychological History: No Psychological Hx Reported Smoking Status: Current some day smoker Past Alcohol Use History: Occasional Past Drug Use History: Marijuana General Exam Limitations: no limitations General appearance: alert, in no apparent distress Head exam: Present: atraumatic, normocephalic, normal inspection Eye exam: Present: normal appearance, PERRL, EOMI. Absent: scleral icterus, conjunctival injection, periorbital swelling ENT exam: Present: normal exam, mucous membranes moist Neck exam: Present: normal inspection. Absent: tenderness, meningismus, lymphadenopathy Respiratory exam: Present: normal lung sounds bilaterally. Absent: respiratory distress, wheezes, rales, rhonchi, stridor Cardiovascular Exam: Present: regular rate, normal rhythm, normal heart sounds. Absent: systolic murmur, diastolic murmur, rubs, gallop, clicks GI/Abdominal exam: Present: soft, normal bowel sounds. Absent: distended, tenderness, guarding, rebound, rigid Extremities exam: Present: normal inspection, full ROM, normal capillary refill. Absent: tenderness, pedal edema, joint swelling, calf tenderness Back exam: Present: normal inspection Neurological exam: Present: alert, oriented X3, CN II-XII intact Psychiatric exam: Present: normal affect, normal mood Skin exam: Present: warm, dry, intact, normal color. Absent: rash Course Vital Signs 05/07/19 13:06 Temperature 98.7 F Pulse Rate 71 Respiratory 18 Rate Blood Pressure 138/83 O2 Sat by Pulse 98 Oximetry - Reevaluation(s) Reevaluation #1: 05/07/19 15:09 Record is reviewed Reevaluation #2: 05/07/19 15:09 Patient has had no bowel movements here in the ER Medical Decision Making - Medical Decision Making 78 male the ER for evaluation, patient coming in for evaluation of black tarry stools, patient is a coagulopathy on Coumadin. INR 4.5. Hemoglobin is 11 down from 14. Patient will be admitted for trending of hemoglobin. Patient does not feel lightheaded dizzy or weak - Lab Data Result diagrams: 05/07/19 14:05 05/07/19 14:05 Lab Results 05/07/19 05/07/19 05/07/19 Range/Units 14:05 14:05 14:05 WBC 6.7 (3.8-10.6) k/uL RBC 3.68 L (4.30-5.90) m/uL Hgb 11.6 L (13.0-17.5) gm/dL Hct 34.0 L (39.0-53.0) % MCV 92.3 (80.0-100.0) fL MCH 31.5 (25.0-35.0) pg MCHC 34.1 (31.0-37.0) g/dL RDW 16.0 H (11.5-15.5) % Plt Count 165 (150-450) k/uL Neutrophils % 62 % Lymphocytes % 19 % Monocytes % 7 % Eosinophils % 8 % Basophils % 2 % Neutrophils # 4.1 (1.3-7.7) k/uL Lymphocytes # 1.3 (1.0-4.8) k/uL Monocytes # 0.5 (0-1.0) k/uL Eosinophils # 0.6 (0-0.7) k/uL Basophils # 0.1 (0-0.2) k/uL PT 42.3 H (9.0-12.0) sec INR 4.4 H (<1.2) APTT 45.5 H (22.0-30.0) sec Sodium 140 (137-145) mmol/L Potassium 4.3 (3.5-5.1) mmol/L Chloride 108 H (98-107) mmol/L Carbon Dioxide 25 (22-30) mmol/L Anion Gap 7 mmol/L BUN 24 H (9-20) mg/dL Creatinine 0.98 (0.66-1.25) mg/dL Est GFR (CKD-EPI)AfAm 86 (>60 ml/min/1.73 sqM) Est GFR (CKD-EPI)NonAf 74 (>60 ml/min/1.73 sqM) Glucose 106 H (74-99) mg/dL Calcium 9.4 (8.4-10.2) mg/dL Magnesium 1.8 (1.6-2.3) mg/dL Total Bilirubin 0.7 (0.2-1.3) mg/dL AST 25 (17-59) U/L ALT 18 L (21-72) U/L Alkaline Phosphatase 74 (38-126) U/L Troponin I (0.000-0.034) ng/mL Total Protein 6.5 (6.3-8.2) g/dL Albumin 3.8 (3.5-5.0) g/dL Blood Type Blood Type Recheck Antibody Screen Spec Expiration Date 05/07/19 05/07/19 Range/Units 14:05 14:05 WBC (3.8-10.6) k/uL RBC (4.30-5.90) m/uL Hgb (13.0-17.5) gm/dL Hct (39.0-53.0) % MCV (80.0-100.0) fL MCH (25.0-35.0) pg MCHC (31.0-37.0) g/dL RDW (11.5-15.5) % Plt Count (150-450) k/uL Neutrophils % % Lymphocytes % % Monocytes % % Eosinophils % % Basophils % % Neutrophils # (1.3-7.7) k/uL Lymphocytes # (1.0-4.8) k/uL Monocytes # (0-1.0) k/uL Eosinophils # (0-0.7) k/uL Basophils # (0-0.2) k/uL PT (9.0-12.0) sec INR (<1.2) APTT (22.0-30.0) sec Sodium (137-145) mmol/L Potassium (3.5-5.1) mmol/L Chloride (98-107) mmol/L Carbon Dioxide (22-30) mmol/L Anion Gap mmol/L BUN (9-20) mg/dL Creatinine (0.66-1.25) mg/dL Est GFR (CKD-EPI)AfAm (>60 ml/min/1.73 sqM) Est GFR (CKD-EPI)NonAf (>60 ml/min/1.73 sqM) Glucose (74-99) mg/dL Calcium (8.4-10.2) mg/dL Magnesium (1.6-2.3) mg/dL Total Bilirubin (0.2-1.3) mg/dL AST (17-59) U/L ALT (21-72) U/L Alkaline Phosphatase (38-126) U/L Troponin I <0.012 (0.000-0.034) ng/mL Total Protein (6.3-8.2) g/dL Albumin (3.5-5.0) g/dL Blood Type A Negative Blood Type Recheck No Antibody Screen NEGATIVE Spec Expiration Date 05/10/20192304 Disposition Clinical Impression: Gastrointestinal hemorrhage, Coagulopathy Disposition: ADMITTED IP TO THIS [facility] Condition: Fair Instructions (If sedation given, give patient instructions): Gastrointestinal Bleeding (ED) Is patient prescribed a controlled substance at d/c from ED?: No Referrals: Kvng Adrian DO [Primary Care Provider] - 1-2 days
[2019-05-07 14:27] LABS: Basophils # (A) 0.1 k/uL (0-0.2); Basophils % (A) 2 %; Eosinophils # (A) 0.6 k/uL (0-0.7); Eosinophils % (A) 8 %; HGB 11.6 gm/dL (13.0-17.5); Lymphocytes # (A) 1.3 k/uL (1.0-4.8); Lymphocytes % (A) 19 %; MCH 31.5 pg (25.0-35.0); MCHC 34.1 g/dL (31.0-37.0); MCV 92.3 fL (80.0-100.0); Mean Platelet Volume 8.5; Monocytes # (A) 0.5 k/uL (0-1.0); Monocytes % (A) 7 %; Neutrophils # (A) 4.1 k/uL (1.3-7.7); Neutrophils % (A) 62 %; Platelet Count 165 k/uL (150-450); RBC 3.68 m/uL (4.30-5.90); WBC 6.7 k/uL (3.8-10.6)
[2019-05-07 14:34] LABS: Albumin 3.8 g/dL (3.5-5.0); Calcium 9.4 mg/dL (8.4-10.2); Magnesium 1.8 mg/dL (1.6-2.3); Potassium 4.3 mmol/L (3.5-5.1); Total Bilirubin 0.7 mg/dL (0.2-1.3); Total Protein 6.5 g/dL (6.3-8.2)
[2019-05-07 14:38] LABS: INR 4.4 (<1.2); Partial Thromboplastin Time 45.5 sec (22.0-30.0); Prothrombin Time 42.3 sec (9.0-12.0)
[2019-05-07] MEDS ORDERED: PANTOPRAZOLE 40 MG/10 ML VIAL IVP STA (15:11)
[2019-05-07] MEDS ORDERED: ONDANSETRON 4 MG/2 ML VIAL IVP PRN (15:11)
[2019-05-07 18:30] VITALS: BMI 29.0
[2019-05-07] MEDS: PANTOPRAZOLE 40 MG/10 ML VIAL IVP SCH (20:04)
[2019-05-08 08:03] VITALS: BP 138/54; PULSE 56; RESP 20; TEMP 98
[2019-05-08 08:10] LABS: INR 4.2 (<1.2); Prothrombin Time 40.6 sec (9.0-12.0)
[2019-05-08] MEDS ORDERED: DOXAZOSIN 4 MG TAB PO SCH (09:00)
[2019-05-08] MEDS ORDERED: ATENOLOL 50 MG TAB PO SCH (09:00)
[2019-05-08] MEDS ORDERED: ATORVASTATIN 20 MG TAB PO SCH (09:00)
[2019-05-08] MEDS: PANTOPRAZOLE 40 MG/10 ML VIAL IVP SCH (09:08)
--- NOTE | 2019-05-08 12:50 | P.HPIM ---
History of Present Illness 70-year-old pleasant gentleman came in with compensative dark stools has been going on for last 4 days. Multiple episodes. Patient on Coumadin for atrial flutter ablation patient is a progress over the optic and INR to 4.4 today's 4.2. Patient has normal bilateral brown stool today. Patient denied any abdominal pain denied any hematemesis hematochezia. Patient is on aspirin as well patient has a history of coronary artery bypass grafting in the past. I consult gastroenterology in the median protocol officer recommended him to have upper GI endoscopy tomorrow morning before discharge but patient the doesn't want to stay here in the hospital because of which the [facility] discharge the patient with a close follow-up with the protocol officer and a day or 2 and patient will hold his aspirin until he sees a protocol officer and Coumadin will be held for next couple days and the patient can get INR checked in 2 days and the depending and INR can be restarted on Coumadin patient naproxen was discontinued patient will be discharged on Prilosec. Review of Systems REVIEW OF SYSTEMS: CONSTITUTIONAL: No fever, no malaise, no fatigue. HEENT: No recent visual problems or hearing problems. Denied any sore throat. CARDIOVASCULAR: No chest pain, orthopnea, PND, no palpitations, no syncope. PULMONARY: No shortness of breath, no cough, no hemoptysis. GASTROINTESTINAL: No diarrhea, no nausea, no vomiting, no abdominal pain. NEUROLOGICAL: No headaches, no weakness, no numbness. HEMATOLOGICAL: Denies any bleeding or petechiae. GENITOURINARY: Denies any burning micturition, frequency, or urgency. MUSCULOSKELETAL/RHEUMATOLOGICAL: Denies any joint pain, swelling, or any muscle pain. ENDOCRINE: Denies any polyuria or polydipsia. The rest of the 14-point review of systems is negative. Past Medical History Past Medical History: Atrial Fibrillation, Coronary Artery Disease (CAD), COPD, Rheumatoid Arthritis (RA) History of Any Multi-Drug Resistant Organisms: None Reported Past Surgical History: Coronary Bypass/CABG, Orthopedic Surgery Additional Past Surgical History / Comment(s): L shoulder Past Anesthesia/Blood Transfusion Reactions: No Reported Reaction Past Psychological History: No Psychological Hx Reported Smoking Status: Former smoker Past Alcohol Use History: Occasional Past Drug Use History: Marijuana Medications and Allergies Home Medications Medication Instructions Recorded Confirmed Type Atenolol [Tenormin] 50 mg PO DAILY 10/23/17 05/07/19 History Simvastatin [Zocor] 40 mg PO DAILY 10/23/17 05/07/19 History Spironolactone 50 mg PO DAILY 10/23/17 05/07/19 History Doxazosin [Cardura] 4 mg PO DAILY 11/19/18 05/07/19 History Aspirin 81 mg PO DAILY #0 05/08/19 05/07/19 Rx Warfarin [Coumadin] 2.5 mg PO SUMOTUTHFRSA #0 05/08/19 05/07/19 Rx Allergies Allergy/AdvReac Type Severity Reaction Status Date / Time diphenhydramine Allergy Unknown Verified 05/07/19 13:54 [From Benadryl] Physical Exam Vitals: Vital Signs Temp Pulse Pulse Resp BP BP Pulse Ox 05/08/19 07:59 98.0 F 56 L 20 138/54 94 L 05/08/19 03:05 98.3 F 60 16 114/55 05/07/19 23:05 98.8 F 66 16 123/58 96 05/07/19 19:20 98.2 F 60 16 130/60 96 05/07/19 17:18 97.6 F 63 20 143/60 99 05/07/19 16:30 64 19 132/60 100 05/07/19 16:00 55 L 14 141/87 05/07/19 15:30 63 20 121/54 05/07/19 15:00 65 10 L 112/91 99 05/07/19 14:30 61 20 122/79 99 05/07/19 14:04 96 05/07/19 13:06 98.7 F 71 18 138/83 98 Intake and Output 05/07/19 05/08/19 05/08/19 22:59 06:59 14:59 Intake Total 360 Balance 360 Intake: Oral 360 Other: Voiding Method Toilet Toilet # Voids 1 Weight 88.7 kg PHYSICAL EXAMINATION: GENERAL: The patient is alert and oriented x3, not in any acute distress. Well developed, well nourished. HEENT: Pupils are round and equally reacting to light. EOMI. No scleral icterus. No conjunctival pallor. Normocephalic, atraumatic. No pharyngeal erythema. No thyromegaly. CARDIOVASCULAR: S1 and S2 present. No murmurs, rubs, or gallops. PULMONARY: Chest is clear to auscultation, no wheezing or crackles. ABDOMEN: Soft, nontender, nondistended, normoactive bowel sounds. No palpable organomegaly. MUSCULOSKELETAL: No joint swelling or deformity. EXTREMITIES: No cyanosis, clubbing, or pedal edema. NEUROLOGICAL: Gross neurological examination did not reveal any focal deficits. SKIN: No rashes. Results CBC & Chem 7: 05/07/19 14:05 05/07/19 14:05 Labs: Abnormal Lab Results - Last 24 Hours (Table) 05/07/19 05/07/19 05/07/19 Range/Units 14:05 14:05 14:05 RBC 3.68 L (4.30-5.90) m/uL Hgb 11.6 L (13.0-17.5) gm/dL Hct 34.0 L (39.0-53.0) % RDW 16.0 H (11.5-15.5) % PT 42.3 H (9.0-12.0) sec INR 4.4 H (<1.2) APTT 45.5 H (22.0-30.0) sec Chloride 108 H (98-107) mmol/L BUN 24 H (9-20) mg/dL Glucose 106 H (74-99) mg/dL ALT 18 L (21-72) U/L 05/08/19 Range/Units 07:50 RBC (4.30-5.90) m/uL Hgb (13.0-17.5) gm/dL Hct (39.0-53.0) % RDW (11.5-15.5) % PT 40.6 H (9.0-12.0) sec INR 4.2 H (<1.2) APTT (22.0-30.0) sec Chloride (98-107) mmol/L BUN (9-20) mg/dL Glucose (74-99) mg/dL ALT (21-72) U/L Thrombosis Risk Factor Assmnt - Choose All That Apply Each Factor Represents 1 point: Abnormal pulmonary function (COPD) Other Risk Factors: No Thrombosis Risk Factor Assessment Total Risk Factor Score: 1 Thrombosis Risk Factor Assessment Level: Low Risk Assessment and Plan Plan: Acute upper GI bleed: Secondary to peptic ulcer disease along with suprapubic and an aspirin: Further management as mentioned above naproxen will be discontinued. -Atrial fibrillation presently sinus rhythm rate controlled holding of anti- correlation because of suprapubic cannot and GI bleed -Coronary artery disease with a history of CABG in the past -COPD without any acute exacerbation Osteoarthritis: Use Tylenol avoid nonsteroidal anti-inflammatory medications.
--- NOTE | 2019-05-08 12:50 | P.DS ---
Providers Date of admission: 05/07/19 15:11 Attending physician: Melvina Serrato Consults: 05/08/19 10:07 Consult Physician Routine Consulting Provider: Tamanna Altman Consult Reason/Comments: Upper GI bleed Do you want consulting provider notified?: Yes Primary care physician: Kvng Adrian [facility] Course: As mentioned in HPI Patient Condition at Discharge: Fair Plan - Discharge Summary Discharge Rx Participant: Yes New Discharge Prescriptions: New Omeprazole [PriLOSEC] 40 mg PO AC-BRKFST #30 capsule. Continue Spironolactone 50 mg PO DAILY Simvastatin [Zocor] 40 mg PO DAILY Atenolol [Tenormin] 50 mg PO DAILY Doxazosin [Cardura] 4 mg PO DAILY Aspirin 81 mg PO DAILY #0 Warfarin [Coumadin] 2.5 mg PO SUMOTUTHFRSA #0 Discontinued Ibuprofen [Motrin] 800 mg PO Q6H PRN PRN Reason: Pain Discharge Medication List Atenolol [Tenormin] 50 mg PO DAILY 10/23/17 [History] Simvastatin [Zocor] 40 mg PO DAILY 10/23/17 [History] Spironolactone 50 mg PO DAILY 10/23/17 [History] Doxazosin [Cardura] 4 mg PO DAILY 11/19/18 [History] Aspirin 81 mg PO DAILY #0 05/08/19 [Rx] Omeprazole [PriLOSEC] 40 mg PO AC-BRKFST #30 capsule. 05/08/19 [Rx] Warfarin [Coumadin] 2.5 mg PO SUMOTUTHFRSA #0 05/08/19 [Rx] Follow up Appointment(s)/Referral(s): Kvng Adrian DO [Primary Care Provider] - 3 Days (INR needs to be checked on this day. ) Chu Negron MD [STAFF PHYSICIAN] - 1-2 Days Patient Instructions/Handouts: Gastrointestinal Bleeding (ED) Discharge Disposition: HOME SELF-CARE
== END 2019-05-08 12:26 | disposition home or self-care (01) ==
LOC: EC 13:00 → 3SCARD 15:11
PROVIDERS: ADMIT Hospitalist; ATTEND Hospitalist
DX: K27.4 Chronic or unspecified peptic ulcer, site unspecified, with hemorrhage (principal); I48.91 Unspecified atrial fibrillation; I48.92 Unspecified atrial flutter; I25.10 Atherosclerotic heart disease of native coronary artery without angina pectoris; J44.9 Chronic obstructive pulmonary disease, unspecified; M06.9 Rheumatoid arthritis, unspecified; M19.90 Unspecified osteoarthritis, unspecified site; Z79.01 Long term (current) use of anticoagulants; Z79.82 Long term (current) use of aspirin; Z95.1 Presence of aortocoronary bypass graft; Z79.1 Long term (current) use of non-steroidal anti-inflammatories (NSAID); Z87.891 Personal history of nicotine dependence; Z79.899 Other long term (current) drug therapy; Z88.8 Allergy status to other drugs, medicaments and biological substances; D68.9 Coagulation defect, unspecified
CPT/HCPCS: 96376 ×2; 96361 ×3; 96374; 96375; 99285; 36415; 86900; 86901; 80053; 83735; 84484; 85025; 85610 ×2; 85730; 86850; G0378 ×2; J2405; C9113 ×2

== ENCOUNTER → 2019-07-08 | Outpatient (CLI) | payer MEDICARE ==
[2019-07-08 10:06] LABS: Basophils # (A) 0.1 k/uL (0-0.2); Basophils % (A) 1 %; Eosinophils # (A) 0.7 k/uL (0-0.7); Eosinophils % (A) 8 %; HCT 39.5 % (39.0-53.0); HGB 12.4 gm/dL (13.0-17.5); Lymphocytes # (A) 1.3 k/uL (1.0-4.8); Lymphocytes % (A) 16 %; MCH 29.8 pg (25.0-35.0); MCHC 31.3 g/dL (31.0-37.0); MCV 95.4 fL (80.0-100.0); Monocytes # (A) 0.5 k/uL (0-1.0); Monocytes % (A) 7 %; Neutrophils # (A) 5.3 k/uL (1.3-7.7); Neutrophils % (A) 65 %; Platelet Count 193 k/uL (150-450); RBC 4.15 m/uL (4.30-5.90); RDW 13.8 % (11.5-15.5); WBC 8.2 k/uL (3.8-10.6)
[2019-07-08 15:48] LABS: African American GFR (CKD) 74.1 (60.0-200.0); Albumin 4.3 g/dL (3.80-4.90); Albumin/Globulin Ratio 2.15 (1.60-3.17); Anion Gap 7.1 mmol/L (4.00-12.00); BUN/Creat Ratio 17.27 Ratio (12.00-20.00); Calcium 9.4 mg/dL (8.7-10.3); Carbon Dioxide 29.9 mmol/L (21.6-31.8); Chol/HDL Ratio 2.61; LDL Cholesterol,Calculated 63.4 mg/dL (0.0-131.0); Potassium 4.4 mmol/L (3.5-5.5); Total Protein 6.3 g/dL (6.2-8.2); VLDL Calculation 15.6 mg/dL (5.00-40.00)
== END | disposition home or self-care (01) ==
LOC: LABWHC1 08:13
PROVIDERS: ATTEND Internal Medicine Cardiovascular Disease
DX: I48.91 Unspecified atrial fibrillation (principal); I10 Essential (primary) hypertension; E78.5 Hyperlipidemia, unspecified
CPT/HCPCS: 36415; 80053; 80061; 85025

== ENCOUNTER → 2021-02-01 | Outpatient (CLI) | payer MEDICARE ==
[2021-02-01 16:11] LABS: Chol/HDL Ratio 2.49; LDL Cholesterol,Calculated 69.8 mg/dL (0.0-131.0); VLDL Calculation 12.2 mg/dL (5.00-40.00)
== END | disposition home or self-care (01) ==
LOC: LABWHC1 08:49
PROVIDERS: ATTEND Internal Medicine Cardiovascular Disease
DX: E78.2 Mixed hyperlipidemia (principal)
CPT/HCPCS: 36415; 80061; 84450; 84460

== ENCOUNTER 2021-05-24 09:57 | Day surgery (SDC) | payer MEDICARE ==
[2021-05-23 09:16] VITALS: BMI 28.5
[~2021-05-24 09:57] MED LIST: LACTATED RINGERS 1,000 ML IV SCH
[2021-05-24 10:27] VITALS: TEMP 98
[2021-05-24] MEDS ORDERED: LACTATED RINGERS 1,000 ML IV ONE (10:27)
[2021-05-24] MEDS ORDERED: PROPOFOL 10 MG/ML 20 ML VIAL IV ONE (10:46)
[2021-05-24] MEDS ORDERED: LIDOCAINE 1% INJ 10MG/ML (20 ML MDV) ONE (10:46)
--- NOTE | 2021-05-24 11:19 | P.PCN ---
Date of Procedure: 05/24/21 Procedure(s) Performed: BRIEF HISTORY: Patient is a 80-year-old pleasant male scheduled for an elective colonoscopy as a part of evaluation of Hemoccult-positive stool; PROCEDURE PERFORMED: Colonoscopy. PREOPERATIVE DIAGNOSIS: Hemoccult-positive. IV sedation per Anesthesia. PROCEDURE: After informed consent was obtained, the patient, was brought into the endoscopy unit. IV sedation was administered by Anesthesia under continuous monitoring. Digital rectal examination was normal. Initially the Olympus CF-160 flexible video colonoscope was then inserted in the rectum, gradually advanced into the cecum without any difficulty. Careful examination was performed as the scope was gradually being withdrawn. Ileocecal valve and the appendiceal orifice were visualized and appeared normal. Prep was excellent. Mucosa of the cecum, ascending colon, transverse colon, descending colon, sigmoid colon, and rectum appeared normal. Scattered sigmoid diverticulosis. Retroflexion was performed in the rectum and small internal hemorrhoids were seen. The patient tolerated the procedure well. IMPRESSION: Normal-appearing colon from rectum to cecum with no evidence of colorectal neoplasia Moderate sigmoid diverticulosis Small internal hemorrhoids. RECOMMENDATIONS: Findings of this examination were discussed with the patient as well as his family. He was advised to be a high-fiber diet and take fiber supplements a regular basis..
[2021-05-24 11:20] VITALS: RESP 16
[2021-05-24 11:36] VITALS: BP 129/57; PULSE 80
== END 2021-05-24 12:14 | disposition home or self-care (01) ==
LOC: ORWHC2ENDO 09:57
PROVIDERS: ATTEND Internal Medicine Gastroenterology
DX: K57.30 Diverticulosis of large intestine without perforation or abscess without bleeding (principal); K64.8 Other hemorrhoids; I25.10 Atherosclerotic heart disease of native coronary artery without angina pectoris; I49.9 Cardiac arrhythmia, unspecified; E78.5 Hyperlipidemia, unspecified; I48.91 Unspecified atrial fibrillation; Z95.1 Presence of aortocoronary bypass graft; J44.9 Chronic obstructive pulmonary disease, unspecified; F17.200 Nicotine dependence, unspecified, uncomplicated; F12.90 Cannabis use, unspecified, uncomplicated; M06.9 Rheumatoid arthritis, unspecified; Z79.01 Long term (current) use of anticoagulants; Z79.82 Long term (current) use of aspirin; Z79.899 Other long term (current) drug therapy; Z88.8 Allergy status to other drugs, medicaments and biological substances
CPT/HCPCS: 45378; J2001; J2704

== ENCOUNTER → 2021-06-27 | Outpatient (CLI) | payer MEDICARE ==
--- NOTE | 2021-06-27 15:13 | XR ---
EXAMINATION TYPE: XR chest 2V DATE OF EXAM: 06/27/2021 COMPARISON: 11/19/2018 HISTORY: 80-year-old male [id number], R059 SOB, COUGH TECHNIQUE: Frontal and lateral views FINDINGS: Median sternotomy wires are present. Post CABG clips. Heart mild to moderately enlarged. Increased me dial right basilar opacity. Hyperinflation. No pleural effusion. IMPRESSION: Post-CABG changes with COPD and mild to moderate cardiomegaly There are increasing medial right basil ar opacities that could represent atelectasis or pneumonia. Clinically correlate.
== END | disposition home or self-care (01) ==
LOC: RADXRYALE 10:09
PROVIDERS: ATTEND Physician Assistant
DX: J44.9 Chronic obstructive pulmonary disease, unspecified (principal); I51.7 Cardiomegaly; R91.8 Other nonspecific abnormal finding of lung field; Z95.1 Presence of aortocoronary bypass graft
CPT/HCPCS: 71046

== ENCOUNTER → 2022-09-16 | Outpatient (CLI) | payer MEDICARE ==
[2022-09-16 14:37] LABS: African American GFR (CKD) 69.5 (60.0-200.0); Albumin 4.1 g/dL (3.8-4.9); Albumin/Globulin Ratio 1.56 (1.60-3.17); Anion Gap 9.9 mmol/L (10.00-18.00); BUN/Creat Ratio 10.53 Ratio (12.00-20.00); Calcium 9.3 mg/dL (8.7-10.3); Carbon Dioxide 30.7 mmol/L (20.0-27.5); Globulin 2.6 g/dL (1.6-3.3); Potassium 4.1 mmol/L (3.5-5.5); Total Bilirubin 0.6 mg/dL (0.30-1.20); Total Protein 6.7 g/dL (6.2-8.2)
== END | disposition home or self-care (01) ==
LOC: LABWHC1 09:29
PROVIDERS: ATTEND Internal Medicine Infectious Disease
DX: Z22.7 Latent tuberculosis (principal)
CPT/HCPCS: 36415; 80053

== ENCOUNTER → 2023-05-11 | Outpatient (CLI) | payer MEDICARE ==
[2023-05-11 16:54] LABS: ALT 28 U/L (10-49); AST 36 U/L (14-35); Albumin 4.1 d/dL (3.8-4.9); Albumin/Globulin Ratio 1.71 Ratio (1.60-3.17); Alkaline Phosphatase 78 U/L (41-126); BUN/Creat Ratio 10.93 Ratio (12.00-20.00); Blood Urea Nitrogen 15.3 mg/dL (9.0-27.0); Calcium 9.1 mg/dL (8.7-10.3); Chloride 106 mmol/L (96-109); Globulin 2.4 d/dL (1.6-3.3); Glucose 109 mg/dL (70-110); Potassium 4.7 mmol/L (3.5-5.5); Sodium 140 mmol/L (135-145); Total Bilirubin 0.9 mg/dL (0.3-1.2); Total Protein 6.5 d/dL (6.2-8.2)
== END | disposition home or self-care (01) ==
LOC: LABWHC1 08:25
PROVIDERS: ATTEND Internal Medicine Infectious Disease
DX: Z11.7 Encounter for testing for latent tuberculosis infection (principal)
CPT/HCPCS: 36415; 80053; 86480

== ENCOUNTER 2023-09-19 20:34 | Inpatient (IN) | payer MEDICARE ==
[2023-09-19] MEDS ORDERED: ROCURONIUM 10 MG/ML (5 ML VIAL) IV ONE (20:44)
[2023-09-19] MEDS ORDERED: ETOMIDATE 2 MG/ML 10 ML VIAL IVP STA (20:44)
[2023-09-19 20:51] LABS: Glucose,Whole Blood 125 mg/dL (70-110)
[2023-09-19 21:16] LABS: ALT 15 U/L (4-49); AST 23 U/L (17-59); African American GFR (CKD) 69 (>60 ml/min/1.73 sqM); Albumin 4.3 g/dL (3.5-5.0); Alcohol <10 mg/dL; Alkaline Phosphatase 98 U/L (38-126); Anion Gap 12 mmol/L; Blood Urea Nitrogen 18 mg/dL (9-20); Calcium 9.4 mg/dL (8.4-10.2); Carbon Dioxide 27 mmol/L (22-30); Chloride 101 mmol/L (98-107); Creatine Kinase 47 U/L (55-170); Glucose 142 mg/dL (74-99); Non-African American GFR(CKD) 60 (>60 ml/min/1.73 sqM); Sodium 140 mmol/L (137-145); Total Bilirubin 1.2 mg/dL (0.2-1.3); Total Protein 7.5 g/dL (6.3-8.2)
[2023-09-19 21:20] LABS: Basophils # (A) 0.1 k/uL (0-0.2); Basophils % (A) 1 %; Eosinophils # (A) 0.7 k/uL (0-0.7); Eosinophils % (A) 8 %; HCT 46.3 % (39.0-53.0); HGB 14.7 gm/dL (13.0-17.5); Lymphocytes # (A) 2.9 k/uL (1.0-4.8); Lymphocytes % (A) 30 %; MCH 29.4 pg (25.0-35.0); MCHC 31.8 g/dL (31.0-37.0); MCV 92.6 fL (80.0-100.0); Mean Platelet Volume 9.5; Monocytes # (A) 0.7 k/uL (0-1.0); Monocytes % (A) 7 %; Neutrophils # (A) 4.8 k/uL (1.3-7.7); Neutrophils % (A) 50 %; Platelet Count 171 k/uL (150-450); RDW 14.2 % (11.5-15.5); WBC 9.5 k/uL (3.8-10.6)
--- NOTE | 2023-09-19 21:21 | CT ---
EXAMINATION TYPE: CT brain wo con for TPA CT DLP: 1132.6 mGycm, Automated exposure control for dose reduction was used. DATE OF EXAM: 09/19/2023 9:08 PM COMPARISON: 11/19/2018. CLINICAL INDICATION:Male, 82 years old with history of Neuro deficit, acute, stroke suspected, AMS TECHNIQUE: Brain: Axial CT images of the brain were obtained with coronal and sagittal reformats created and rev iewed. Contrast used: None. Oral contrast used: None. FINDINGS: Brain: Extra-axial spaces: There is crowding of the basilar cisterns. Secondary to blood products from the s kull base. Ventricular system: Intraventricular hemorrhage involving the fourth, third and bilateral lateral roxy tricles. Cerebral parenchyma: Intraparenchymal hemorrhage thought to be originating from the left vishal/left ce rebellar peduncle with extension into left thalamus left basal ganglia. There is crowding of the basi lar cisterns. Cerebellum: High-density blood products with vasogenic edema noted bilaterally Intracranial vasculature: Atherosclerotic calcifications of the intracranial vessels. Soft tissues: Normal. Calvarium/osseous structures: No depressed skull fracture. Paranasal sinuses and mastoid air cells: Mild scattered paranasal sinus disease. Visualized orbits: Bilateral aphakia IMPRESSION: Intraparenchymal hemorrhage thought to be originating around the vishal/left cerebellar peduncle with l arge volume of blood products in the ventricular system and around the basilar cistern with early her niation suspected. Findings communicated to Dr. Luiza Gutierrez DO on 09/19/2023 9:[address] Roberto Carlos Briceno.
--- NOTE | 2023-09-19 21:27 | XR ---
EXAMINATION TYPE: XR chest 1V confirm line plcmt DATE OF EXAM: 09/19/2023 9:19 PM CLINICAL INDICATION:Male, 82 years old with history of intubated; H COMPARISON: Chest radiographs from 06/27/2021 TECHNIQUE: XR chest 1V confirm line plcmt Frontal view of the chest. FINDINGS: Lungs/Pleura: Bilateral lower lobe airspace opacities. There is no evidence of pleural effusion or pn eumothorax. Pulmonary vascularity: Unremarkable. Heart/mediastinum: Cardiomediastinal silhouette is enlarged and stable. Musculoskeletal: No acute osseous pathology. Midline sternotomy wires are noted. Other findings: None Lines/Tubes: Endotracheal tube with distal tip 0.8 cm above the salas. IMPRESSION: 1. Endotracheal tube 0.8 cm above the salas consider retraction 1.5 to 2 cm for optimal placement. 2. Bilateral lower lobe airspace opacities, for aspiration versus pneumonia.
[2023-09-19 21:28] LABS: INR 1.2 (<1.2); Partial Thromboplastin Time 23.3 sec (22.0-30.0); Prothrombin Time 12.4 sec (10.0-12.5)
--- NOTE | 2023-09-19 21:32 | ED ---
General Adult HPI - General Chief complaint: Neuro Symptoms/Deficit Stated complaint: Stroke Time Seen by Provider: 09/19/23 20:35 Source: EMS Mode of arrival: EMS Limitations: no limitations - History of Present Illness Initial comments: 82-year-old male presents to the emergency department with strokelike symptoms. states that the patient was reporting to some numbness in his right hand. She was concerned he was having a stroke and therefore called EMS. Symptoms started around 7:15 PM. The patient then began having aphasia. Upon EMS rivero sferred to the hospital he had a decrease in his responsiveness and was completely flaccid on his right side. No history of stroke. He does take xarelto for A. fib. Last dose was last night. The patient does drink alcohol daily. He had 2 shots of alcohol today. No reported falls. Patient was not complaining of any headache. Patient arrives to us and is completely unresponsive but with a pulse. She has agonal respirations. HPI is limited because the patient's current state - Related Data Home Medications Medication Instructions Recorded Confirmed atenoloL [Tenormin] 50 mg PO DAILY 10/23/17 09/19/23 Rivaroxaban [Xarelto] 20 mg PO DAILY 09/19/23 09/19/23 Spironolactone [Aldactone] 25 mg PO DAILY 09/19/23 09/19/23 Allergies Allergy/AdvReac Type Severity Reaction Status Date / Time diphenhydramine Allergy Unknown Verified 09/19/23 21:13 [From Benadryl] Review of Systems ROS Statement: Those systems with pertinent positive or pertinent negative responses have been documented in the HPI. ROS Other: All systems not noted in ROS Statement are negative. Past Medical History Past Medical History: Atrial Fibrillation, Coronary Artery Disease (CAD), COPD, Hyperlipidemia, Hypertension, Rheumatoid Arthritis (RA) History of Any Multi-Drug Resistant Organisms: None Reported Past Surgical History: Coronary Bypass/CABG, Orthopedic Surgery Additional Past Surgical History / Comment(s): L shoulder, colonoscopy, triple bypass January 2003. Past Anesthesia/Blood Transfusion Reactions: No Reported Reaction Smoking Status: Current every day smoker - Past Family History Mother Family Medical History: Cancer Additional Family Medical History / Comment(s): Breast General Exam Limitations: altered mental status General appearance: obtunded Head exam: Present: atraumatic, normocephalic, normal inspection Eye exam: Present: other (Unequal. 4 mm left pupil nonreactive. 2 mm right pupil nonreactive) ENT exam: Present: mucous membranes dry Respiratory exam: Present: other (agonal respirations) Cardiovascular Exam: Present: tachycardia, irregular rhythm GI/Abdominal exam: Present: soft, normal bowel sounds. Absent: distended, tenderness, guarding, rebound, rigid Neurological exam: Present: altered, other (Patient does have spontaneous movement of his left upper extremity. Right and left lower extremity does withdraw to pain. Patient has no response to painful sensation of the right upper extremity. Patient does not follow any commands.) Course Vital Signs 09/19/23 09/19/23 09/19/23 20:47 21:13 21:16 Pulse Rate 74 Blood Pressure 210/100 O2 Sat by Pulse 100 Oximetry Fraction of 100 100 Inspired Oxygen (FIO2) 09/19/23 09/19/23 09/19/23 21:33 21:40 22:07 Pulse Rate 66 71 55 L Blood Pressure 192/89 195/83 186/77 O2 Sat by Pulse 100 100 100 Oximetry Fraction of Inspired Oxygen (FIO2) Procedures - Intubation Sedative: Etomidate Mg Given: 20 Paralytic: Rocuronium Mg Given: 50 Size: 3 ET Tube Size: 7.5 ET Tube Uncuffed: No Tube Secured Depth (cm): 26 Tube Secured Location: lips Tube Placement Confirmation: visualized tube passing through cords, equal breath sounds bilaterally, no breath sounds over epigastrium, confirmation by capnometr y Patient Tolerated Procedure: well, no complications Medical Decision Making - Medical Decision Making Was pt. sent in by a medical professional or institution (JOYCELYN Villagomez, DISPLAY SPECIALIST, urgent care, hospital, or longterm...) When possible be specific @ -No Did you speak to anyone other than the patient for history (EMS, parent, family, police, friend...)? What history was obtained from this source @ -Spoke with family and EMS Did you review nursing and triage notes (agree or disagree)? Why? @ -I reviewed and agree with nursing and triage notes Were old charts reviewed (outside hosp., previous admission, EMS record, old EKG, old radiological studies, urgent care reports/EKG's, longterm records)? Report findings @ -No old charts were reviewed Differential Diagnosis (chest pain, altered mental status, abdominal pain women, abdominal pain men, vaginal bleeding, weakness, fever, dyspnea, syncope, headache, dizziness, GI bleed, back pain, seizure, CVA, palpatations, mental health, musculoskeletal)? @ -Differential Altered Mental Status: Hypoglycemia, DKA, hypercapnia, ETOH, overdose, CO poisoning, trauma, myxedema coma, HTN encephalopathy, infection, encephalitis, psychosis, intercranial hemorrhage, hepatic encephalopathy, meningitis, CVA, this is not meant to be an all-inclusive list EKG interpreted by me (3pts min.). @ -Yes and demonstrates A. fib with a rate of 123. QRS 151. QTC of 383. Some sustained V. tach X-rays interpreted by me (1pt min.). @ -yes, et tube deep CT interpreted by me (1pt min.). @ -Yes and demonstrates massive intracranial hemorrhage U/S interpreted by me (1pt. min.). @ -None done What testing was considered but not performed or refused? (CT, X-rays, U/S, labs)? Why? @ -None What meds were considered but not given or refused? Why? @ -Kcentra, mannitol however patient will be made comfort care Did you discuss the management of the patient with other professionals (professionals i.e. DrTodd, PA, DISPLAY SPECIALIST, lab, RT, psych nurse, social work instructor, assembler for puller over machine, teacher, community resource officer, mattress spring encaser)? Give summary @ -Spoke with Dr. Sauer who states that the patient will not have any meaningful outcome. Also spoke with Dr. schofield and dr. flood Was smoking cessation discussed for >3mins.? @ -No Was critical care preformed (if so, how long)? @ -yes, 45 minutes Were there social determinants of health that impacted care today? How? (Homelessness, low income, unemployed, alcoholism, drug addiction, transportation, low edu. Level, literacy, decrease access to med. care, group home, rehab)? @ -No Was there de-escalation of care discussed even if they declined (Discuss DNR or withdrawal of care, Hospice)? DNR status @ -Yes patient will be made comfort care What co-morbidities impacted this encounter? (DM, HTN, Smoking, COPD, CAD, Cancer, CVA, ARF, Chemo, Hep., AIDS, mental health diagnosis, sleep apnea, morbid obesity)? @ -A. fib on anticoagulation, EtOH use Was patient admitted / discharged? Hospital course, mention meds given and route, prescriptions, significant lab abnormalities, going to OR and other pertinent info. @ -Upon arrival patient was promptly placed into trauma bay 2. Patient has agonal respirations and therefore is unstable for CT. Patient placed on continuous pulse ox and cardiac monitoring. Patient intubated with a 7-1/2 ET tube, 26 cm at the lip after he was administered 20 mg of etomidate and 50 mg of rocuronium. Accu-Chek within normal limits. NIH is measured to be 32. Patient is sent for CT which demonstrates massive intracranial hemorrhage of the left vishal obstructing the fourth ventricle with signs of herniation. This is discussed with Dr. Sauer as the patient was activated as a code stroke 20 minutes prior to hospital arrival. He states that there is no meaningful outcome with this type of diagnosis. Recommended comfort care. I did discuss this with the patient's and daughter at length. They understand the diagnosis and are agreeable to terminal extubation however there is additional family that is coming into town. I did speak with Dr. Schofield who will admit the patient. Dr. Vargas is agreeable to allowing the patient to come to the ICU. Undiagnosed new problem with uncertain prognosis? @ -No Drug Therapy requiring intensive monitoring for toxicity (Heparin, Nitro, Insulin, Cardizem)? @ -No Were any procedures done? @ -Intubation Diagnosis/symptom? @ -Acute encephalopathy with vent dependence, acute intracranial hemorrhage Acute, or Chronic, or Acute on Chronic? @ -Acute Uncomplicated (without systemic symptoms) or Complicated (systemic symptoms)? @ -complicated Side effects of treatment? @ -No Exacerbation, Progression, or Severe Exacerbation? @ -No Poses a threat to life or bodily function? How? (Chest pain, USA, SD, pneumonia, PE, COPD, DKA, ARF, appy, cholecystitis, CVA, Diverticulitis, Homicidal, Suicidal, threat to staff... and all critical care pts) @ -Yes patient will succumb to his diagnosis - Lab Data Result diagrams: 09/19/23 20:58 09/19/23 20:58 Lab Results 09/19/23 09/19/23 09/19/23 Range/Units 20:40 20:58 20:58 WBC 9.5 (3.8-10.6) k/uL RBC 5.00 (4.30-5.90) m/uL Hgb 14.7 (13.0-17.5) gm/dL Hct 46.3 (39.0-53.0) % MCV 92.6 (80.0-100.0) fL MCH 29.4 (25.0-35.0) pg MCHC 31.8 (31.0-37.0) g/dL RDW 14.2 (11.5-15.5) % Plt Count 171 (150-450) k/uL MPV 9.5 Neutrophils % 50 % Lymphocytes % 30 % Monocytes % 7 % Eosinophils % 8 % Basophils % 1 % Neutrophils # 4.8 (1.3-7.7) k/uL Lymphocytes # 2.9 (1.0-4.8) k/uL Monocytes # 0.7 (0-1.0) k/uL Eosinophils # 0.7 (0-0.7) k/uL Basophils # 0.1 (0-0.2) k/uL PT 12.4 (10.0-12.5) sec INR 1.2 H (<1.2) APTT 23.3 (22.0-30.0) sec Sodium (137-145) mmol/L Potassium (3.5-5.1) mmol/L Chloride (98-107) mmol/L Carbon Dioxide (22-30) mmol/L Anion Gap mmol/L BUN (9-20) mg/dL Creatinine (0.66-1.25) mg/dL Est GFR (CKD-EPI)AfAm (>60 ml/min/1.73 sqM) Est GFR (CKD-EPI)NonAf (>60 ml/min/1.73 sqM) Glucose (74-99) mg/dL POC Glucose (mg/dL) 125 H (70-110) mg/dL POC Glu Recruiter Coordinator ID John Heard Calcium (8.4-10.2) mg/dL Total Bilirubin (0.2-1.3) mg/dL AST (17-59) U/L ALT (4-49) U/L Alkaline Phosphatase (38-126) U/L Creatine Kinase (55-170) U/L Troponin I (0.000-0.034) ng/mL Total Protein (6.3-8.2) g/dL Albumin (3.5-5.0) g/dL Serum Alcohol mg/dL 09/19/23 09/19/23 Range/Units 20:58 20:58 WBC (3.8-10.6) k/uL RBC (4.30-5.90) m/uL Hgb (13.0-17.5) gm/dL Hct (39.0-53.0) % MCV (80.0-100.0) fL MCH (25.0-35.0) pg MCHC (31.0-37.0) g/dL RDW (11.5-15.5) % Plt Count (150-450) k/uL MPV Neutrophils % % Lymphocytes % % Monocytes % % Eosinophils % % Basophils % % Neutrophils # (1.3-7.7) k/uL Lymphocytes # (1.0-4.8) k/uL Monocytes # (0-1.0) k/uL Eosinophils # (0-0.7) k/uL Basophils # (0-0.2) k/uL PT (10.0-12.5) sec INR (<1.2) APTT (22.0-30.0) sec Sodium 140 (137-145) mmol/L Potassium 4.0 (3.5-5.1) mmol/L Chloride 101 (98-107) mmol/L Carbon Dioxide 27 (22-30) mmol/L Anion Gap 12 mmol/L BUN 18 (9-20) mg/dL Creatinine 1.14 (0.66-1.25) mg/dL Est GFR (CKD-EPI)AfAm 69 (>60 ml/min/1.73 sqM) Est GFR (CKD-EPI)NonAf 60 (>60 ml/min/1.73 sqM) Glucose 142 H (74-99) mg/dL POC Glucose (mg/dL) (70-110) mg/dL POC Glu Recruiter Coordinator ID Calcium 9.4 (8.4-10.2) mg/dL Total Bilirubin 1.2 (0.2-1.3) mg/dL AST 23 (17-59) U/L ALT 15 (4-49) U/L Alkaline Phosphatase 98 (38-126) U/L Creatine Kinase 47 L (55-170) U/L Troponin I <0.012 (0.000-0.034) ng/mL Total Protein 7.5 (6.3-8.2) g/dL Albumin 4.3 (3.5-5.0) g/dL Serum Alcohol <10 mg/dL Disposition Clinical Impression: ICH (intracerebral hemorrhage) Disposition: ADMITTED IP TO THIS HOSP Condition: Critical Is patient prescribed a controlled substance at d/c from ED?: No Time of Disposition: 21:32 Decision to Admit Reason: Admit from EC Decision Date: 09/19/23 Decision Time: 21:32
--- NOTE | 2023-09-19 21:34 | CT ---
EXAMINATION TYPE: CT angio head neck CT DLP: 528.8 mGycm, Automated exposure control for dose reduction was used. DATE OF EXAM: 09/19/2023 9:21 PM COMPARISON: CT brain same day.. CLINICAL INDICATION:Male, 82 years old with history of Neuro deficit, acute, stroke suspected; PHH, N euro deficit, acute, stroke suspected TECHNIQUE: Axially acquired helical CT angiogram of the head and neck was obtained with contrast. Axi al images are supplemented with 3D reconstructions and MIP images which were post-processed at an in dependent workstation. NASCET criteria used. Contrast used:65 mL of Isovue 370 with IV Contrast, Oral contrast used: None. FINDINGS: CTA HEAD: No evidence of acute intracranial hemorrhage, mass effect, or midline shift. The ventricles, sulci, a nd cisterns are unremarkable. The visualized portions of the internal carotid arteries, middle cerebral arteries, anterior cerebral arteries, and posterior cerebral arteries are patent. The basilar and vertebral arteries are patent. The vertebral arteries are compressed course past the vishal. CTA NECK: Right Carotid System: The common carotid and external carotid arteries are patent. There is less than 25% stenosis at the c arotid bifurcation secondary to calcified/noncalcified plaque. The rest of the internal carotid arter y is patent. Left Carotid System: The common carotid and external carotid arteries are patent. There is less than 25% stenosis at the c arotid bifurcation secondary to calcified/noncalcified plaque. The rest of the internal carotid arter y is patent. Vertebral arteries are patent without evidence hemodynamically significant stenosis. Diminutive right dominant left vertebral arteries. The vertebral arteries are compressed as they course anterior to t he vishal. There is a three-vessel aortic arch. The origins of the great vessels are patent. No evidence of hemo dynamically significant stenosis. Upper thorax: Partial visualization is opacities in the lower lungs which are peripheral. There is de bris scattered throughout the large airways. Endotracheal tube terminates at the level of the salas. Evidence of pulmonary hypertension IMPRESSION: 1. Endotracheal tube terminates at the level of the salas retraction of 2-3 cm recommended for plac ement 2. Cardiomegaly with pulmonary hypertension. 3. No evidence for active extravasation. 4. Compression of the basilar artery as it courses past the vishal due to hemorrhage an basilar cister ns. 5. No evidence of dissection of the cervical internal carotid arteries or vertebral arteries or any evidence of significant stenosis at the carotid bifurcations. 6. No evidence of intracranial aneurysm.
[2023-09-20 00:43] LABS: Glucose,Whole Blood 142 mg/dL (70-110)
--- NOTE | 2023-09-20 01:18 | P.HPIM ---
History of Present Illness H&P Date: 09/19/23 Patient is a 82-year-old male with a PMH of CAD status post CABG, A. fib on Xarelto , hypertension, hyperlipidemia, COPD, and rheumatoid arthritis who was brought into the emergency room for strokelike symptoms. The history was obtained from ED provider and from the family at the bedside as the patient was intubated at the time of interview. The patient had reportedly complained of numbness in his right hand at around 7:15 PM for which his activated EMS. The patient quickly developed right-sided paralysis upon EMS arrival. He was immediately brought to the ED where code stroke was activated. There were no reports of falls or trauma. The patient however had developed unresponsiveness with agonal respirations upon arrival. He was intubated and immediately taken for brain imaging. CT brain revealed an intraparenchymal hemorrhage thought to be originating around the pontine region with large volume of blood products in the ventricular system. The case was discussed by the ED provider with the neuro-primary education professor pest control worker helper who noted the very low likelihood of any meaningful recovery in light of large intracerebral hemorrhage. Laboratory evaluation was reviewed with hemoglobin 14.7, glucose 142, troponin less than 0.012, and serum alcohol level less than 10. Case was discussed in detail with multiple family members at the bedside including , daughter, and son. ED documentation reviewed and case discussed with ED provider. Review of systems: Unable to obtain due to mental status Physical examination: Vital signs reviewed General: Intubated male, no distress, appears at stated age, normal weight Derm: no unusual rashes/lesions, warm Head: atraumatic, normocephalic, symmetric Eyes: anicteric sclera, pupils dilated and nonreactive to light ENT: Nose and ears atraumatic Neck: No cervical lymphadenopathy, trachea midline, supple Mouth: no lip lesion, mucus membranes moist Cardiovascular: S1S2 reg, no murmur, positive dorsalis pedis pulse bilateral, no edema Lungs: CTA bilateral, no rhonchi, no rales, no accessory muscle use Abdominal: soft, nontender to palpation, no guarding Ext: no gross muscle atrophy, no contractures, Neuro: Absent gag reflex, unable to assess as patient was intubated and on propofol Assessment: 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 fib, hypertension, hyperlipidemia, COPD, rheumatoid arthritis Imaging: CT brain revealed an intraparenchymal hemorrhage thought to be originating around the pontine region with large volume of blood products in the ventricular system. Data Review: Laboratory evaluation was reviewed with hemoglobin 14.7, glucose 142, troponin less than 0.012, and serum alcohol level less than 10. Plan: Discussed the patient's poor prognosis with the family in detail Family notes that the patient did not wish to be kept alive on machines. They wish to make the patient no code Continue with ventilator bundle Admitted to medical ICU with primary education professor notified by ED provider C/w Neurochecks CODE STATUS: No Code Discussed with: Family Past Medical History Past Medical History: Atrial Fibrillation, Coronary Artery Disease (CAD), COPD, Hyperlipidemia, Hypertension, Rheumatoid Arthritis (RA) History of Any Multi-Drug Resistant Organisms: None Reported Past Surgical History: Coronary Bypass/CABG, Orthopedic Surgery Additional Past Surgical History / Comment(s): L shoulder, colonoscopy, triple bypass January 2003. Past Anesthesia/Blood Transfusion Reactions: No Reported Reaction Smoking Status: Current every day smoker - Past Family History Mother Family Medical History: Cancer Additional Family Medical History / Comment(s): Breast Medications and Allergies Home Medications Medication Instructions Recorded Confirmed Type atenoloL [Tenormin] 50 mg PO DAILY 10/23/17 09/19/23 History Rivaroxaban [Xarelto] 20 mg PO DAILY 09/19/23 09/19/23 History Spironolactone [Aldactone] 25 mg PO DAILY 09/19/23 09/19/23 History Allergies Allergy/AdvReac Type Severity Reaction Status Date / Time diphenhydramine Allergy Unknown Verified 09/19/23 21:13 [From Benadryl] Physical Exam Vitals: Vital Signs Pulse BP Pulse Ox FiO2 09/19/23 22:07 55 L 186/77 100 09/19/23 21:40 71 195/83 100 09/19/23 21:33 66 192/89 100 09/19/23 21:16 100 09/19/23 21:13 74 210/100 100 09/19/23 20:47 100 Intake and Output 09/19/23 09/19/23 09/20/23 14:59 22:59 06:59 Intake Total 6.642 17.825 Balance 6.642 17.825 Intake: Intake, IV Titration 6.642 17.825 Amount propofoL 1,000 mg In 6.642 17.825 Empty Bag 1 bag @ 10 MCG/ KG/MIN 3.946 mls/hr IV . Q24H [facility] Rx#:[id number] Other: Weight 65.771 kg Results CBC & Chem 7: 09/19/23 20:58 09/19/23 20:58 Labs: Abnormal Lab Results - Last 24 Hours (Table) 09/19/23 09/19/23 09/19/23 Range/Units 20:40 20:58 20:58 INR 1.2 H (<1.2) Glucose 142 H (74-99) mg/dL POC Glucose (mg/dL) 125 H (70-110) mg/dL Creatine Kinase 47 L (55-170) U/L
[2023-09-20] MEDS ORDERED: MORPHINE SULFATE 4 MG/ML SYRINGE IV PRN (02:23)
[2023-09-20] MEDS ORDERED: LORazepam 2 MG/ML INJ IV PRN (02:23)
[2023-09-20] MEDS ORDERED: ATROPINE OPHTH SOLN 1% 5ML BTL SUBLINGUAL PRN (02:23)
[2023-09-20] MEDS ORDERED: MORPHINE SULFATE (100 MG/2 ML) 100 MG in SODIUM CHLORIDE 0.9% 100 ML IV SCH (02:30)
[2023-09-20] MEDS ORDERED: SCOPOLAMINE 1 MG/72 HR PATCH TRANSDERM SCH (02:30)
[2023-09-20 03:58] VITALS: BP 165/65
[2023-09-20 04:23] VITALS: PULSE 30; RESP 0
== END 2023-09-20 06:44 | disposition expired | DRG 64 ==
LOC: EC 20:34 → 2SICU 21:32
PROVIDERS: ADMIT Internal Medicine; ATTEND Internal Medicine
PROC: 5A1935Z Respiratory Ventilation, Less than 24 Consecutive Hours (ICD-10-PCS; principal; 2023-09-19)
PROC: 0BH17EZ Insertion of Endotracheal Airway into Trachea, Via Natural or Artificial Opening (ICD-10-PCS; principal; 2023-09-19)
DX: I61.3 Nontraumatic intracerebral hemorrhage in brain stem (principal); J96.90 Respiratory failure, unspecified, unspecified whether with hypoxia or hypercapnia; G81.01 Flaccid hemiplegia affecting right dominant side; R47.01 Aphasia; I47.20 Ventricular tachycardia, unspecified; D68.32 Hemorrhagic disorder due to extrinsic circulating anticoagulants; R29.732 NIHSS score 32; M06.9 Rheumatoid arthritis, unspecified; T45.515A Adverse effect of anticoagulants, initial encounter; Z66 Do not resuscitate; Z51.5 Encounter for palliative care; I25.10 Atherosclerotic heart disease of native coronary artery without angina pectoris; I48.91 Unspecified atrial fibrillation; I10 Essential (primary) hypertension; E78.5 Hyperlipidemia, unspecified; J44.9 Chronic obstructive pulmonary disease, unspecified; F17.200 Nicotine dependence, unspecified, uncomplicated; Z88.8 Allergy status to other drugs, medicaments and biological substances; Z79.01 Long term (current) use of anticoagulants; Z79.899 Other long term (current) drug therapy; Z95.1 Presence of aortocoronary bypass graft
CPT/HCPCS: 31500; 36415; 51702; 70450; 70496; 70498; 80053; 80320; 82550; 84484; 85025; 85610; 85730; 93005; 94002; 94003; 99291